=== PATIENT | female | born 1945 | race Caucasian/White ===

== ENCOUNTER 2019-07-20 13:14 | Inpatient (IN) | payer MEDICARE, OTHER ==
[~2019-07-20] VITALS: Ht 160 cm; Wt 72.6 kg
--- NOTE | 2019-07-20 13:25 | NUR ---
Pt presents to ED via WC [facility] for report they sent her here for a result of a left hip fx on an xray they completed this a.m. Pt had ate a large "roll" for breakfast for last solid and spouse had patient drinking his water in waiting room after 1300 ROB[employer] TECHNICIAN to ED room 1325. PT IS NPO NOW. Last used an Ibuprofen 200 mg at 1000. Pt's spouse reports names of her medications and assists answering some questions as pt stares at him and pauses in her answers. Spouse states she was found on floor in kitchen on Labor Day night. Pt does not not know if she slipped and fell, got dizzy, or what occured. Pt was in front of refrigerator. Pt uses Ambien nightly. Pt is known diabetic and states she uses pills but is suppose to start insulin but has not yet. Pt begins to ask why is asking what hospital she wants as she states, "I thought I would go home and it will just mend?" Dr educated patient and spouse of need for orthopedic consult for surgery to repair fx hip.
--- NOTE | 2019-07-20 13:35 | NUR ---
Pt assessed, see Trauma Flow Sheet. Pt placed in gown: Hematoma to left side head occipital area with tenderness, ecchymosis to left upper arm posterior side with mild tenderness of upper humerus, ecchymosis area to left hip at area of greater trochanter region.
[2019-07-20] MEDS ORDERED: fentaNYL INJECTION 100 MCG/2 ML AMP IVP ONE (14:00)
--- NOTE | 2019-07-20 14:03 | ED Lower Extremity ---
General Chief Complaint: Lower Extremity Stated Complaint: BROKEN LEFT HIP Source: patient, spouse History of Present Illness Date Seen by Provider: Jul 20, 2019 Time Seen by Provider: 13:18 Initial Comments 74-year-old female presenting with complaints of left hip pain after a fall Wednesday night, July 17. She takes Ambien to help her rest and she had taken her sleeping pill already about night. She does not remember exactly how she fell. She thinks that she had caught her feet on the carpet and fallen on her left side. She states that her and helped her get back to bed. She has bruising to her left side and has pain in her left hip. She had assisted in bed on Wednesday but had tried getting up and walking on Wednesday. The pain had gotten worse with trying to walk. She finally came in to be evaluated today in the clinic and they did an x-ray showing a hip fracture. She was sent from the clinic to the emergency department because of the hip fracture. She last ate at approximately 10 AM and had a sip of water in the emergency department waiting room just prior to being seen. She denies any pain with urination. She has had no fever or chills. She denies any nausea or vomiting. She does have some tenderness to her left shoulder and arm where she has bruising. Allergies and Home Medications Allergies Coded Allergies: No Known Drug Allergies (Unverified , 07/20/19) Patient Home Medication List Home Medication List Reviewed: Yes Review of Systems Constitutional: No chills, No dizziness, No fever, No weakness EENTM: No ear pain, No double vision, No eye pain, No vision loss, No mouth pain, No epistaxis, No nose congestion, No nose pain, No throat pain Respiratory: No cough, No hemoptysis, No orthopnea, No stridor, No wheezing Cardiovascular: No chest pain, No palpitations Gastrointestinal: No abdominal pain, No nausea, No vomiting Genitourinary: No dysuria, No hematuria Musculoskeletal: No back pain; joint pain (left hip and left shoulder) Skin: change in color (bruising to left arm and left hip.) Psychiatric/Neurological: Headache (mild headache where she has a hematoma to the left side of her scalp) Past Rajuagf-Dhurql-Vrbclv Hx Past Med/Social Hx: Reviewed Nursing Past Med/Soc Hx Patient Social History Recent Foreign Travel: No Contact w/Someone Who Travel: No Past Medical History High Cholesterol, Hypertension Diabetes, Non-Insulin dep Physical Exam Vital Signs Vital Signs - First Documented 07/20/19 13:25 Temp 97.3 Pulse 70 Resp 16 B/P (MAP) 133/44 (73) Pulse Ox 99 O2 Delivery Room Air Capillary Refill : Height, Weight, BMI Height: '" Weight: lbs. oz. kg; BMI Method: General Appearance: WD/WN, no apparent distress, obese HEENT: PERRL/EOMI, pharynx normal Neck: non-tender, full range of motion, supple, normal inspection Cardiovascular: normal peripheral pulses, regular rate, rhythm Respiratory: chest non-tender, lungs clear, normal breath sounds Gastrointestinal: normal bowel sounds, non tender, soft, no pulsatile mass Hips: left hip bone tenderness, left hip ecchymosis, left hip limited range of motion (due to pain), left hip pain, left hip soft tissue tenderness, left hip swelling (and bruising) Neurologic/Tendon: normal sensation, normal motor functions Neurologic/Psychiatric: alert, normal mood/affect, oriented x 3 Skin: warm/dry, ecchymosis (left upper arm, left hip, left side of the scalp) Progress/Results/Core Measures Results/Orders Lab Results Laboratory Tests Test 07/20/19 14:00 Range/Units White Blood Count 3.8 L 4.3-11.0 10^3/uL Red Blood Count 3.80 L 4.35-5.85 10^6/uL Hemoglobin 11.1 L 11.5-16.0 G/DL Hematocrit 35 35-52 % Mean Corpuscular Volume 91 80-99 FL Mean Corpuscular Hemoglobin 29 25-34 PG Mean Corpuscular Hemoglobin Concent 32 32-36 G/DL Red Cell Distribution Width 12.9 10.0-14.5 % Platelet Count 145 130-400 10^3/uL Mean Platelet Volume 9.7 7.4-10.4 FL Neutrophils (%) (Auto) 61 42-75 % Lymphocytes (%) (Auto) 31 12-44 % Monocytes (%) (Auto) 8 0-12 % Eosinophils (%) (Auto) 0 0-10 % Basophils (%) (Auto) 0 0-10 % Neutrophils # (Auto) 2.3 1.8-7.8 X 10^3 Lymphocytes # (Auto) 1.2 1.0-4.0 X 10^3 Monocytes # (Auto) 0.3 0.0-1.0 X 10^3 Eosinophils # (Auto) 0.0 0.0-0.3 10^3/uL Basophils # (Auto) 0.0 0.0-0.1 10^3/uL Prothrombin Time 13.6 12.2-14.7 SEC INR Comment 1.0 0.8-1.4 Activated Partial Thromboplast Time 30 24-35 SEC Sodium Level 132 L 135-145 MMOL/L Potassium Level 4.6 3.6-5.0 MMOL/L Chloride Level 97 L 98-107 MMOL/L Carbon Dioxide Level 19 L 21-32 MMOL/L Anion Gap 16 H 5-14 MMOL/L Blood Urea Nitrogen 22 H 7-18 MG/DL Creatinine 1.62 H 0.60-1.30 MG/DL Estimat Glomerular Filtration Rate 31 BUN/Creatinine Ratio 14 Glucose Level 537 *H 70-105 MG/DL Calcium Level 8.8 8.5-10.1 MG/DL Corrected Calcium 8.9 8.5-10.1 MG/DL Total Bilirubin 0.7 0.1-1.0 MG/DL Aspartate Amino Transf (AST/SGOT) 37 H 5-34 U/L Alanine Aminotransferase (ALT/SGPT) 32 0-55 U/L Alkaline Phosphatase 331 H 40-136 U/L Total Protein 6.5 6.4-8.2 GM/DL Albumin 3.9 3.2-4.5 GM/DL My Orders Orders - BRITTNEY LANDEROS MD Comprehensive Metabolic Panel (07/20/19 13:47) Ua Culture If Indicated (07/20/19 13:47) Ed Iv/Invasive Line Start (07/20/19 13:47) Cbc With Automated Diff (07/20/19 13:47) Protime With Inr (07/20/19 13:47) Partial Thromboplastin Time (07/20/19 13:47) Ekg Tracing (07/20/19 13:50) Fentanyl Injection (Sublimaze Injection (07/20/19 14:00) Ct Head/Cervical Spine Wo (07/20/19 13:55) Humerus 2 View Left (07/20/19 13:55) Chest 1 View Ap/Pa Only (07/20/19 14:21) Medications Given in ED Current Medications Medications Dose Ordered Sig/Taty Route Start Time Stop Time Status Last Admin Dose Admin Fentanyl Citrate 50 mcg ONCE ONCE IVP 07/20/19 14:00 07/20/19 14:01 DC 07/20/19 14:45 50 MCG Vital Signs/I&O 07/20/19 13:25 Temp 97.3 Pulse 70 Resp 16 B/P (MAP) 133/44 (73) Pulse Ox 99 O2 Delivery Room Air Progress Progress Note #1: Progress Note X-rays reviewed from [facility] clinic showing left femoral neck fracture. This shows some slight impaction. Will also check basic labs in addition to a CT of the head since she had a scalp hematoma and x-rays of the left femur is still for occult fractures. Provided these tests looked okay will proceed with admission through the [facility] provider so that she could see orthopedics for surgical evaluation and treatment of the hip fracture. Progress Note #2: Progress Note labs show she has elevated glucose and Cr. Advised Dr. Fabian of this and sliding scale insulin orders added to bridge order set. CT head, Humerus xray, CXR all look stable without acute significant abnormality and no intracranial hemorrhage or fractures. Initial ECG Impression Date: Jul 20, 2019 Initial ECG Impression Time: 14:05 Initial ECG Rhythm: Normal Sinus Initial ECG Comparisson: No Previous ECG Available Comment Sinus rhythm with a heart rate of 69 bpm. ME interval of 129 ms. QT interval 418 ms with a QT corrected interval 448 ms. She has no acute ST elevation. There is no prior tracing for comparison. Diagnostic Imaging Diagonstic Imaging: CT Plain Films/CT/US/NM/MRI: c-spine, head Comments NAME: [facility] REC#: [id number] PT STATUS: REG ER : 1945 PHYSICIAN: BRITTNEY LANDEROS MD ADMIT DATE: 07/20/19/ER FS Draft Date of Exam:07/20/19 CT HEAD/CERVICAL SPINE WO PROCEDURE: CT head and CT cervical spine without contrast. TECHNIQUE: Multiple contiguous axial images were obtained through the brain and cervical spine without the use of intravenous contrast. Sagittal and coronal reformations through the cervical spine were then performed. Auto Exposure Controls were utilized during the CT exam to meet ALARA standards for radiation dose reduction. INDICATION: Fall. Head injury. COMPARISON: None. FINDINGS: CT HEAD: No intracranial hemorrhage, mass effect, hydrocephalus or extra-axial fluid collections. No CT evidence for territorial infarction. Moderate generalized cerebral and cerebellar parenchymal volume loss. Osseous structures are intact. The visualized paranasal sinuses and mastoids are clear. CT CERVICAL SPINE: Reversal of the normal cervical lordosis centered at C6. Alignment is otherwise unremarkable. Mild degenerative endplate changes are greatest at C6-C7. Vertebral body heights preserved. No fractures. No evidence of high-grade spinal canal narrowing on soft tissue windows. The visualized paravertebral soft tissues are unremarkable. Lung apices are clear. IMPRESSION: No acute intracranial or cervical spine CT findings. Dictated on workstation # [id number] Dict: 07/20/19 1432 Trans: 07/20/191435 YFN Interpreted by: DONLAD GARCIA MD Electronically signed by: Diagonstic Imaging: Xray Plain Films/CT/US/NM/MRI: chest Comments NAME: [facility] REC#: [id number] PT STATUS: REG ER : 1945 PHYSICIAN: BRITTNEY LANDEROS MD ADMIT DATE: 07/20/19/ER FS Draft Date of Exam:07/20/19 CHEST 1 VIEW AP/PA ONLY INDICATION: Fall. Hip fracture. COMPARISON: None. FINDINGS: Single frontal view of the chest demonstrates normal heart size and pulmonary vascularity. The lungs are well aerated and clear. No large pleural effusion or pneumothorax is seen. The visualized osseous structures show no acute abnormalities. IMPRESSION: 1. No acute cardiopulmonary process. Dictated on workstation # [id number] Dict: 07/20/19 1433 Trans: 07/20/19 1438 [facility] Interpreted by: BRUNILDA STEWART MD Electronically signed by: Diagonstic Imaging: Xray Plain Films/CT/US/NM/MRI: other (left humerus) Comments NAME: [facility] REC#: [id number] PT STATUS: REG ER : 1945 PHYSICIAN: BRITTNEY LANDEROS MD ADMIT DATE: 07/20/19/ER FS Draft Date of Exam:07/20/19 HUMERUS 2 VIEW LEFT INDICATION: Fall. COMPARISON: None. FINDINGS: Two views of the left humerus were obtained and show no fractures, dislocations, or other acute bony abnormalities. Joint spaces are well maintained throughout. The soft tissues appear unremarkable. No radiopaque foreign bodies are identified. IMPRESSION: Unremarkable radiographic exam of the left humerus. Dictated on workstation # [id number] Dict: 07/20/19 1438 Trans: 07/20/19 1442 [facility] [id number] Interpreted by: BRUNILDA STEWART MD Electronically signed by: Diagonstic Imaging: Xray Plain Films/CT/US/NM/MRI: hip Comments [facility] [place] [place] NAME: [facility] REC#: [id number] PT STATUS: REG CLI : 1945 PHYSICIAN: JEMMA LUO APRN ADMIT DATE: 07/20/19/RAD FS Draft Date of Exam:07/20/19 HIP 2-3 VIEW LEFT CLINICAL INDICATION: Patient is status post fall two days ago. Patient has left hip pain. EXAM: X-ray of the left hip, AP and frog-leg views. COMPARISON: None. FINDINGS: There is an impacted and displaced fracture of the proximal left femoral neck/subcapital region. There is no other fracture or dislocation seen. Remainder of the pelvis is unremarkable. Visualized left sacroiliac joints are unremarkable. Phleboliths are seen in the pelvis. IMPRESSION: There is a mildly impacted fracture of the left proximal femoral neck/subcapital region. Results of this report were discussed with Jemma Luo APRN via the telephone on 07/20/2019 at 1225 hrs. CRITICAL FINDINGS. Dictated on workstation # [id number] Dict: 07/20/19 1216 Trans: 07/20/19 1235 [facility] [id number] Interpreted by: SHARITA ETIENNE MD Electronically signed by: Departure Communication (Admissions) Time/Spoke to Admitting Phy: 14:34 D/w Dr. Fabian about admit of patient for hip fracture. She does have diabetes, hypertension and high cholesterol. CT head and humerus as well as labs are pendi ng. Will contact Dr. Bell for consult. Time/Spoke to Consulting Phy: 14:[address] Bell of the consult about the pt with femoral neck fracture of the subcapital region with mild impaction Impression Primary Impression: Fracture of hip, left, closed Qualified Codes: S72.002A - Fracture of unspecified part of neck of left femur, initial encounter for closed fracture Additional Impression: Hyperglycemia due to type 2 diabetes mellitus Qualified Codes: E11.65 - Type 2 diabetes mellitus with hyperglycemia Disposition: ADMITTED INPATIENT Condition: Stable Admissions Decision to Admit Reason: Admit from ER (General) Decision to Admit/Date: Jul 20, 2019 Time/Decision to Admit Time: 14:34 Departure-Patient Inst. Referrals: [facility] (PCP) Primary Care Physician VARINDER AN APRN (Family) Primary Care Physician BRITTNEY LANDEROS MD Jul 20, 2019 14:03
[2019-07-20 14:32] LABS: WHITE BLOOD COUNT 3.8 10^3/uL (4.3-11.0)
[2019-07-20 14:33] LABS: BASOPHILS % (AUTO) 0 % (0-10); EOSINOPHILS % (AUTO) 0 % (0-10); HEMATOCRIT 35 % (35-52); HEMOGLOBIN 11.1 G/DL (11.5-16.0); LYMPHOCYTES # (AUTO) 1.2 X 10^3 (1.0-4.0); LYMPHOCYTES % (AUTO) 31 % (12-44); MEAN CORPUSCULAR HEMOGLOBIN 29 PG (25-34); MEAN CORPUSCULAR HGB CONC 32 G/DL (32-36); MEAN CORPUSCULAR VOLUME 91 FL (80-99); MEAN PLATELET VOLUME 9.7 FL (7.4-10.4); MONOCYTES # (AUTO) 0.3 X 10^3 (0.0-1.0); MONOCYTES % (AUTO) 8 % (0-12); NEUTROPHILS # (AUTO) 2.3 X 10^3 (1.8-7.8); NEUTROPHILS % (AUTO) 61 % (42-75); PLATELET COUNT 145 10^3/uL (130-400); RED CELL DISTRIBUTION WIDTH 12.9 % (10.0-14.5)
[2019-07-20 14:35] LABS: ALBUMIN 3.9 GM/DL (3.2-4.5); BILIRUBIN,TOTAL 0.7 MG/DL (0.1-1.0); CALCIUM 8.8 MG/DL (8.5-10.1); CREATININE SERUM 1.62 MG/DL (0.60-1.30); POTASSIUM 4.6 MMOL/L (3.6-5.0); TOTAL PROTEIN 6.5 GM/DL (6.4-8.2)
--- NOTE | 2019-07-20 14:36 | Diagnostic Imaging Report ---
PROCEDURE: CT head and CT cervical spine without contrast. TECHNIQUE: Multiple contiguous axial images were obtained through the brain and cervical spine without the use of intravenous contrast. Sagittal and coronal reformations through the cervical spine were then performed. Auto Exposure Controls were utilized during the CT exam to meet ALARA standards for radiation dose reduction. INDICATION: Fall. Head injury. COMPARISON: None. FINDINGS: CT HEAD: No intracranial hemorrhage, mass effect, hydrocephalus or extra-axial fluid collections. No CT evidence for territorial infarction. Moderate generalized cerebral and cerebellar parenchymal volume loss. Osseous structures are intact. The visualized paranasal sinuses and mastoids are clear. CT CERVICAL SPINE: Reversal of the normal cervical lordosis centered at C6. Alignment is otherwise unremarkable. Mild degenerative endplate changes are greatest at C6-C7. Vertebral body heights preserved. No fractures. No evidence of high-grade spinal canal narrowing on soft tissue windows. The visualized paravertebral soft tissues are unremarkable. Lung apices are clear. IMPRESSION: No acute intracranial or cervical spine CT findings. Dictated by: Dictated on workstation # [id number]
--- NOTE | 2019-07-20 14:36 | NUR ---
Lab callled to report critical high glucose 537, notified Dr Nix. Spoke with patient and reports she has not had her meds today. Pt states she ate a large "roll" for breakfast and then was out her to clinic. Pt was elevated glucose on last visit with Niya BARRETO and was instructed on insulin needs and dosing and administration. Pt now states she really has not began taking them insulin shots yet but knows her glucose was as high as 489. Pt seems not acknowledgeable or understanding of the significance of the requirement of glucose management and the complications that may occur i.e. DKA, diabetic coma, effects on kidney.
--- NOTE | 2019-07-20 14:39 | Diagnostic Imaging Report ---
INDICATION: Fall. Hip fracture. COMPARISON: None. FINDINGS: Single frontal view of the chest demonstrates normal heart size and pulmonary vascularity. The lungs are well aerated and clear. No large pleural effusion or pneumothorax is seen. The visualized osseous structures show no acute abnormalities. IMPRESSION: 1. No acute cardiopulmonary process. Dictated by: Dictated on workstation # [id number]
[2019-07-20 14:40] LABS: PROTHROMBIN TIME PATIENT 13.6 SEC (12.2-14.7)
--- NOTE | 2019-07-20 14:42 | Diagnostic Imaging Report ---
INDICATION: Fall. COMPARISON: None. FINDINGS: Two views of the left humerus were obtained and show no fractures, dislocations, or other acute bony abnormalities. Joint spaces are well maintained throughout. The soft tissues appear unremarkable. No radiopaque foreign bodies are identified. IMPRESSION: Unremarkable radiographic exam of the left humerus. Dictated by: Dictated on workstation # [id number]
[2019-07-20] MEDS ORDERED: ONDANSETRON 4 MG/2 ML (SDV) Z0FRAN ONE (15:07)
[2019-07-20] MEDS ORDERED: ONDANSETRON 4 MG/2 ML (SDV) Z0FRAN IVP STA (15:13)
[2019-07-20] MEDS ORDERED: inSUlin (REGULAR) HUMAN 1 UNIT/0.01 ML (CHARGE PER UNIT) SC ONE (15:15)
[2019-07-20] MEDS ORDERED: NS IV 1000 ML 1,000 ML IV SCH (15:15)
--- NOTE | 2019-07-20 15:15 | NUR ---
Catheter inserted per Sarika GRADY prior to transfer.
--- NOTE | 2019-07-20 15:23 | NUR ---
Zofran 4 mg SIVP given for nausea. Pt given Humulin R 14 units subq by Tian GRADY as per Dr order for glucose 537.
[2019-07-20 15:35] LABS: AMORPHOUS SEDIMENT,UR FEW AMOR URATES /LPF; BACTERIA,URINE TRACE /HPF; BILIRUBIN,URINE NEGATIVE (NEGATIVE); CLARITY,URINE CLEAR; COLOR,URINE YELLOW; GLUCOSE, URINE (UA) 3+ (NEGATIVE); KETONES,URINE NEGATIVE (NEGATIVE); LEUKOCYTE ESTERASE ,URINE NEGATIVE (NEGATIVE); NITRITE,URINE NEGATIVE (NEGATIVE); PH,URINE 5.5 (5-9); PROTEIN,URINE 2+ (NEGATIVE); UROBILINOGEN,URINE 0.2 MG/DL (NORMAL); WBC,URINE RARE /HPF
--- NOTE | 2019-07-20 15:35 | NUR ---
Patient departed via [facility] for [place] [facility] Rm 406. Pt is stable. No further nausea, pain rated "4"/10.
[2019-07-20 15:36] LABS: GRANULAR CASTS,URINE RARE /LPF
--- NOTE | 2019-07-20 16:25 | NUR ---
PT ARRIVED TO FLOOR VIA [facility]. ADMITTED TO ROOM 406 FOR LEFT HIP FX. A/O X4. PT HAS LARGE BRUISE ON LEFT ARM AND A LARGE BRUISE ON LEFT HIP. REPORTS PAIN 5/10 BUT DENIES NEEDING ANY PAIN MEDICATION AT THIS TIME. PT HAD FENTANYL LAST AT 1445 PER ED NURSE. PT ORIENTED TO ROOM. CALL LIGHT WITHIN REACH. PT BLOOD SUGAR 401. DR CASH NOTIFIED AND GAVE ORDERS TO GIVE 14 UNITS AT THIS TIME.
[2019-07-20 16:35] VITALS: BP 131/76
[2019-07-20] MEDS ORDERED: CATHETER FLUSH 10 ML SYR IV PRN (17:00)
[2019-07-20] MEDS ORDERED: fentaNYL INJECTION 100 MCG/2 ML AMP IV PRN (17:00)
[2019-07-20] MEDS ORDERED: inSUlin ASPART (NovoLOG) 1 UNIT/0.01 ML (CHARGE PER UNIT) SC NR (17:15)
[2019-07-20] MEDS: NS IV 1000 ML 1,000 ML IV SCH (17:15)
--- NOTE | 2019-07-20 17:34 | Consultation - Ortho ---
Consult - Ortho Subjective Date of Exam 07/20/19 Chief Complaint Mrs. Harris is a 74-year-old white female who fell Conor evening. She had just taken her Ambien for sleep at approximately 10 or 1030 and was standing by her refrigerator and the next thing she knew she was on the floor. She didn't really have much pain if any. She tried to ambulate the next day or so and did increasing pain was seen today and x-rays were obtained which showed an impacted subcapital fracture left hip. She was transferred [facility] for further evaluation and treatment from [place]. Eyes any history of previous left hip problems. No previous orthopedic surgeries. She ambulates without a cane or a walker prior to her fall. He only other injury she has some discomfort in the left upper arm where she has significant bruising. She states she is on no blood thinners. She recently was started on insulin for diabetes. Her previous surgeries include a hysterectomy cataract surgery and cholecystectomy He has no known allergies HPI/Events since last exam Please see chief complaint Medical, Surgical History Please see above for surgeries Medical history is positive for hypertension and diabetes Social History Reviewed and no additions or changes Family History Reviewed and no additions or changes Review of Systems Reviewed and no additions or changes Allergies: Coded Allergies: No Known Drug Allergies (Unverified , 07/20/19) Objective Exam Constitutional: [] HEENT: [] Neck: [No pain with palpation or range of motion] Cardiovascular: [] Respiratory: [] Gastrointestinal: [] Genitourinary: [] Skin: [] Bruising left hip and left upper arm Back/Spine: [No pain with palpation of the thoracolumbar spine.] Extremities: [] Upper extremitiesfull range of motion without pain. No crepitation or deformity. Bruising left shoulder to left elbow. Normal sensation with good cap refill. Good radial pulse. Good strength in both upper extremities. Normal sensation in both upper extremities Lower extremity she has bruising left hip. Pain with palpation and motion left hip. No pain right hip with good range of motion. No pain in either knee with palpation or range of motion. No calf tenderness and negative Homans. No pain either ankle. No swelling. No bruising. No instability. No pain in either foot. Normal sensation with good capillary refill and equal pulses both lower extremities Neurologic: [Grossly intact] Psychiatric: [] Hematologic/lymphatic/immunologic: [] Vital Signs Vital Signs Date Time Temp Pulse Resp B/P (MAP) Pulse Ox O2 Delivery O2 Flow Rate FiO2 07/20/19 16:35 97.2 66 18 131/76 99 Room Air 07/20/19 15:31 97.8 75 16 150/46 (80) 99 07/20/19 13:25 97.3 70 16 133/44 (73) 99 Room Air Lab Results Laboratory Tests 07/20/19 14:00: White Blood Count 3.8L, Red Blood Count 3.80L, Hemoglobin 11.1L, Hematocrit 35, Mean Corpuscular Volume 91, Mean Corpuscular Hemoglobin 29, Mean Corpuscular Hemoglobin Concent 32, Red Cell Distribution Width 12.9, Platelet Count 145, Mean Platelet Volume 9.7, Neutrophils (%) (Auto) 61, Lymphocytes (%) (Auto) 31, Monocytes (%) (Auto) 8, Eosinophils (%) (Auto) 0, Basophils (%) (Auto) 0, Neutrophils # (Auto) 2.3, Lymphocytes # (Auto) 1.2, Monocytes # (Auto) 0.3, Eosinophils # (Auto) 0.0, Basophils # (Auto) 0.0, Prothrombin Time 13.6, INR Comment 1.0, Activated Partial Thromboplast Time 30, Sodium Level 132L, Potassium Level 4.6, Chloride Level 97L, Carbon Dioxide Level 19L, Anion Gap 16H , Blood Urea Nitrogen 22H, Creatinine 1.62H, Estimat Glomerular Filtration Rate 31, BUN/Creatinine Ratio 14, Glucose Level 537*H, Calcium Level 8.8, Corrected Calcium 8.9, Total Bilirubin 0.7, Aspartate Amino Transf (AST/SGOT) 37H, Alanine Aminotransferase (ALT/SGPT) 32, Alkaline Phosphatase 331H, Total Protein 6.5, Albumin 3.9 07/20/19 15:25: Urine Color YELLOW, Urine Clarity CLEAR, Urine pH 5.5, Urine Specific Ramer 1.015L, Urine Protein 2+H, Urine Glucose (UA) 3+H, Urine Ketones NEGATIVE, Urine Nitrite NEGATIVE, Urine Bilirubin NEGATIVE, Urine Urobilinogen 0.2, Urine Leukocyte Esterase NEGATIVE, Urine RBC (Auto) 1+H, Urine RBC NONE, Urine WBC RARE, Urine Squamous Epithelial Cells NONE, Urine Crystals PRESENTH, Urine Amorphous Sediment FEW ANU URATESH, Urine Bacteria TRACE, Urine Casts PRESENT, Urine Granular Casts RARE, Urine Mucus NONE, Urine Culture Indicated NO 07/20/19 16:29: Glucometer 401*H Assessment and Plan Assessment Impacted subcapital fracture left hip after fall on Wednesday evening with mild displacement Problem List Orthopedic problem list includes mildly displaced impacted subcapital fracture left hip Plan Treatment options were discussed with the patient and her . I talked to him at length about surgical and nonsurgical treatment. If treated nonsurgically this would require several weeks of bed rest and no weightbearing and even with that the fracture could displace further, not heal or progress to avascular necrosis Surgical options include in situ screw fixation after attempted closed reduction or cemented bipolar hemiarthroplasty left hip. I talked her about reduction and screw fixation and again the fact that the fracture may not heal, it could displace or could progress to avascular necrosis. She would not be able to weight-bear for 3-4 weeks and then progressive weightbearing. Again cemented hemiarthroplasty was discussed. She couldn't immediately weight-bear. There is some increased risk, blood loss, infection and DVT risks were discussed. After lengthy discussion she wants to proceed with a cemented bipolar hemiarthroplasty left hip. She has had no previous hip problems so would not recommend a total hip arthroplasty at this time. Shear have no further questions or concerns. She is scheduled for surgery tomorrow at approximately 1030. She'll be placed in 5 pounds of [place] traction this evening and continue with bed rest Final Diagonsis Mildly displaced impacted subcapital fracture left hip, contusion left upper arm Level of the visit: Level 3 MAGALY LEON MD Jul 20, 2019 17:34
[2019-07-20 19:44] VITALS: BP 111/67
[2019-07-20] MEDS: inSUlin ASPART (NovoLOG) 1 UNIT/0.01 ML (CHARGE PER UNIT) SC SCH (20:57)
[2019-07-20 23:47] VITALS: BP 116/68
--- NOTE | 2019-07-20 23:50 | NUR ---
PT COMPLAINS OF NOT BEING ABLE OT SLEEP, AND THAT SHE USUALLY TAKES 10MG AMBIEN TO HELP WITH INSOMNIA. DR. CASH CALLED AT 0003, DR ORDERED 5MG AMBIEN PO QHS PRN
[2019-07-21] VITALS (9 sets, daily range): BP systolic 96–128; BP diastolic 45–70
[2019-07-21] MEDS: ZOLPIDEM 5 MG (AMBIEN) TAB PO PRN ×2 (01:01→21:22)
[2019-07-21] MEDS: NS IV 1000 ML 1,000 ML IV SCH ×3 (01:46→18:38)
[2019-07-21] MEDS ORDERED: LACTATED RINGERS 1,000 ML IV PRN (05:37)
[2019-07-21] MEDS: inSUlin ASPART (NovoLOG) 1 UNIT/0.01 ML (CHARGE PER UNIT) SC SCH ×4 (06:35→21:23)
[2019-07-21 06:57] LABS: MEAN PLATELET VOLUME 9.7 FL (7.4-10.4); RED CELL DISTRIBUTION WIDTH 13.3 % (10.0-14.5); WHITE BLOOD COUNT 3.3 10^3/uL (4.3-11.0)
[2019-07-21 07:34] LABS: ALBUMIN 3.5 GM/DL (3.2-4.5); BILIRUBIN,TOTAL 0.6 MG/DL (0.1-1.0); CALCIUM 8.4 MG/DL (8.5-10.1); CREATININE SERUM 1.6 MG/DL (0.60-1.30); POTASSIUM 4.2 MMOL/L (3.6-5.0)
--- NOTE | 2019-07-21 08:46 | History & Physical ---
WILILAM CRAIG,MED STUDENT 07/21/19 0846: HPI History of Present Illness: 74 year old female presents with a history of fall 07/17 around 10pm after taking her Ambien which she states she takes every evening. She was in the kitchen near the refrigerator and next thing she knew she was on the floor. She is unsure how she fell but states she landed on her left side, she is unsure if she hit her head but does state she has noticed a bump on her head since the fall. She was able to get up and make it to the bedroom to have her help her to bed. She denies pain at the time of the fall. The next morning she had very little pain but the left hip and arm pain began to worsen with her increasing activity. The pain became so bad she was seen in the ED 07/20. Source: patient Exam Limitations: no limitations Date seen by provider: Jul 21, 2019 Time Seen by Provider: 02:45 Attending Physician Janae Fabian MD [facility] [place] Consult Date of Admission Jul 20, 2019 at 14:34 Home Medications Home Medications Reviewed patient Home Medication Reconciliation performed by pharmacy medication reconciliations technician automatic and/or nursing. Patients Allergies have been reviewed. Allergies Coded Allergies: No Known Drug Allergies (Unverified , 07/20/19) [id number] Hx Patient Social History Marrital Status: Alcohol Use: Denies Use Recreational Drug Use: No Smoking Status: Never a Smoker 2nd Hand Smoke Exposure: No Recent Foreign Travel: No Contact w/other who traveled: No Recent Hopitalizations: No Recent Infectious Disease Expo: No Past Medical History MedHx: DMII HTN high cholesterol SurgHx: hysterectomy cholecystectomy bilateral cataracts Family Medical History Significant Family History: Heart Disease (4 brothers and father), Cancer (brother-colon cancer), Diabetes (daughter) Family History: Diabetes mellitus 19 MOTHER FH: heart disease 19 MOTHER G8 BROTHER G8 BROTHER Myocardial infarction 19 FATHER G8 BROTHER G8 BROTHER Neoplasm Review of Systems ([facility]) Constitutional: No chills, No fever, No weakness EENTM: No blurred vision, No double vision Respiratory: No cough, No short of breath Cardiovascular: No chest pain Gastrointestinal: No constipation, No diarrhea, No nausea, No vomiting Musculoskeletal: other (left leg and left arm pain) Skin: No rash Psychiatric/Neurological: Denies Headache, Denies Numbness, Denies Paresthesia, Denies Weakness Reviewed Test Results Reviewed Test Results Lab Laboratory Tests 07/20/19 14:00: White Blood Count 3.8L, Red Blood Count 3.80L, Hemoglobin 11.1L, Hematocrit 35, Mean Corpuscular Volume 91, Mean Corpuscular Hemoglobin 29, Mean Corpuscular Hemoglobin Concent 32, Red Cell Distribution Width 12.9, Platelet Count 145, Mean Platelet Volume 9.7, Neutrophils (%) (Auto) 61, Lymphocytes (%) (Auto) 31, Monocytes (%) (Auto) 8, Eosinophils (%) (Auto) 0, Basophils (%) (Auto) 0, Neutrophils # (Auto) 2.3, Lymphocytes # (Auto) 1.2, Monocytes # (Auto) 0.3, Eosinophils # (Auto) 0.0, Basophils # (Auto) 0.0, Prothrombin Time 13.6, INR Comment 1.0, Activated Partial Thromboplast Time 30, Sodium Level 132L, Potassium Level 4.6, Chloride Level 97L, Carbon Dioxide Level 19L, Anion Gap 16H, Blood Urea Nitrogen 22H, Creatinine 1.62H, Estimat Glomerular Filtration Rate 31, BUN/Creatinine Ratio 14, Glucose Level 537*H, Calcium Level 8.8, Corrected Calcium 8.9, Total Bilirubin 0.7, Aspartate Amino Transf (AST/SGOT) 37H, Alanine Aminotransferase (ALT/SGPT) 32, Alkaline Phosphatase 331H, Total Protein 6.5, Albumin 3.9 07/20/19 15:25: Urine Color YELLOW, Urine Clarity CLEAR, Urine pH 5.5, Urine Specific Kimper 1.015L, Urine Protein 2+H, Urine Glucose (UA) 3+H, Urine Ketones NEGATIVE, Urine Nitrite NEGATIVE, Urine Bilirubin NEGATIVE, Urine Urobilinogen 0.2, Urine Leuko cyte Esterase NEGATIVE, Urine RBC (Auto) 1+H, Urine RBC NONE, Urine WBC RARE, Urine Squamous Epithelial Cells NONE, Urine Crystals PRESENTH, Urine Amorphous Sediment FEW ANU URATESH, Urine Bacteria TRACE, Urine Casts PRESENT, Urine Granular Casts RARE, Urine Mucus NONE, Urine Culture Indicated NO 07/20/19 16:29: Glucometer 401*H 07/20/19 20:00: Glucometer 216H 07/21/19 05:45: White Blood Count 3.3L, Red Blood Count 3.68L, Hemoglobin 11.0L, Hematocrit 33L, Mean Corpuscular Volume 90, Mean Corpuscular Hemoglobin 30, Mean Corpuscular Hemoglobin Concent 33, Red Cell Distribution Width 13.3, Platelet Count 149, Mean Platelet Volume 9.7, Sodium Level 141, Potassium Level 4.2, Chloride Level 114#H, Carbon Dioxide Level 20L, Anion Gap 7, Blood Urea Nitrogen 16, Creatinine 1.60H, Estimat Glomerular Filtration Rate 32, BUN/Creatinine Ratio 10, Glucose Level 157H, Calcium Level 8.4L, Corrected Calcium 8.8, Total Bilirubin 0.6, Aspartate Amino Transf (AST/SGOT) 39H, Alanine Aminotransferase (ALT/SGPT) 34, Alkaline Phosphatase 322H, Total Protein 6.0L, Albumin 3.5 07/21/19 06:03: Glucometer 171H 07/21/19 13:14: Glucometer 242H Radiology Humerus X-Ray: Unremarkable radiographic exam of the left humerus. Head/Cervical Spine CT: No acute intracranial or cervical spine CT findings. CXR: No acute cardiopulmonary process. Hip X-Ray: There is a mildly impacted fracture of the left proximal femoral neck/subcapital region. Physical Exam-([facility]) Physical Exam Vital Signs VS - Last 72 Hours, by Label 07/20/19 07/20/19 07/20/19 07/20/19 13:25 15:31 16:30 16:35 Temp 97.3 97.8 97.2 Pulse 70 75 66 Resp 16 16 18 B/P (MAP) 133/44 (73) 150/46 (80) 131/76 Pulse Ox 99 99 99 99 O2 Delivery Room Air Room Air Room Air 07/20/19 07/20/19 07/20/19 07/21/19 19:44 20:55 23:47 04:06 Temp 97.9 97.6 97.1 Pulse 70 72 75 Resp 18 18 18 B/P (MAP) 111/67 (82) 116/68 (84) 128/56 (80) Pulse Ox 98 96 97 O2 Delivery Room Air Room Air Room Air Room Air 07/21/19 07/21/19 07/21/19 07/21/19 08:00 12:06 12:06 12:20 Temp 98.0 97.0 Pulse 68 Resp 18 12 B/P (MAP) 119/70 (86) Pulse Ox 99 99 O2 Delivery Room Air Room Air Room Air Room Air 07/21/19 07/21/19 07/21/19 07/21/19 12:20 12:35 12:50 13:00 Temp 96.0 Pulse 57 Resp 14 16 B/P (MAP) 115/67 (83) Pulse Ox 99 99 O2 Delivery Room Air Room Air Room Air Room Air 07/21/19 07/21/19 13:00 13:00 Temp 97.2 Resp 16 Pulse Ox 98 O2 Delivery Room Air Room Air Capillary Refill : Less Than 3 SecondsLess Than 3 Seconds General Appearance: WD/WN, no apparent distress Respiratory: chest non-tender, lungs clear, normal breath sounds, no respiratory distress, no accessory muscle use Cardiovascular: regular rate, rhythm, no murmur Gastrointestinal: normal bowel sounds, non tender, soft, no organomegaly; No guarding, No rebound Neurologic/Psychiatric: alert, normal mood/affect, oriented x 3 Assessment/Plan Assessment/Plan Assessment & Plan 74 year old female with history of a fall and left hip pain and hyperglycemia. Ortho consult done with plan to do cement bipolar hemiarthroscopy at 10:30am 07/21. Patient is comfortable at this time. Glucose trending down, continue to monitor. Clinical Quality Measures DVT/VTE Risk/Contraindication: Risk Factor Score Per Nursin RFS Level Per Nursing on Admit: 4+=Very High JANAE FABIAN MD 07/21/19 2006: Home Medications Allergies Coded Allergies: No Known Drug Allergies (Unverified , 07/20/19) [id number] Hx Family Medical History Family History: Diabetes mellitus 19 MOTHER FH: heart disease 19 MOTHER G8 BROTHER G8 BROTHER Myocardial infarction 19 FATHER G8 BROTHER G8 BROTHER Neoplasm Physical Exam-([facility]) Physical Exam General Appearance: WD/WN, no apparent distress Respiratory: lungs clear, normal breath sounds Cardiovascular: regular rate, rhythm, no murmur Gastrointestinal: normal bowel sounds, non tender, soft Neurologic/Psychiatric: alert, normal mood/affect Skin: normal color, warm/dry Assessment/Plan Assessment/Plan Admission Status: Inpatient Order (span 2 midnights) Reason for Inpatient Admission: Hip fracture and repair with underlying comorbidities, will require 2 nights or more for recovery. (1) Fracture of hip, left, closed Status: Acute Assessment & Plan: Repair per Ortho. Qualifiers: Qualified Codes: S72.002A - Fracture of unspecified part of neck of left femur, initial encounter for closed fracture (2) Hypertension Status: Chronic Assessment & Plan: Resume home meds. Qualifiers: Qualified Codes: I10 - Essential (primary) hypertension (3) Hyperlipemia Status: Chronic Assessment & Plan: Resume home statin. (4) Diabetes Status: Chronic Assessment & Plan: Resume home metformin, diabetic diet. Sliding scale insulin, may need insulin on d/c. Qualifiers: Qualified Codes: E11.65 - Type 2 diabetes mellitus with hyperglycemia (5) Leukopenia Status: Acute Assessment & Plan: Hold home olanzepine, monitor. (6) Acute renal insufficiency Status: Acute Assessment & Plan: Unknown baseline, stable today. Hydration and monitoring. (7) Hyponatremia Status: Acute (8) Elevated AST (SGOT) Status: Acute Assessment & Plan: Minimally elevated, Unclear etiology, monitor. (9) DVT prophylaxis Status: Acute Assessment & Plan: Enoxaparin Supervisory-Addendum Brief Verification & Attestation Participated in pt care: history, MDM, physical Personally performed: exam, history, MDM Care discussed with: Medical Student Procedures: n/a Verification and Attestation of Medical Student E/M Service A medical student performed and documented this service in my presence. I reviewed and verified all information documented by the medical student and made modifications to such information, when appropriate. I personally performed the physical exam and medical decision making. See problem list for my assessment and plan. Janae Fabian, Jul 21, 2019,20:06 WILLIAM CRAIG,MED STUDENT Jul 21, 2019 08:46 JANAE FABIAN MD Jul 21, 2019 20:06
--- NOTE | 2019-07-21 09:05 | Progress Note-Pre Operative ---
Pre-Operative Progress Note H&P Reviewed The H&P was reviewed, patient examined and no changes noted. The patient has no further questions about the procedure and would like to proceed. The left leg was marked. Date Seen by Provider: Jul 21, 2019 Time Seen by Provider: 08:50 Date H&P Reviewed: Jul 21, 2019 Time H&P Reviewed: 09:04 Pre-Operative Diagnosis: mildly displaced impacted subcapital fracture left hip. MAGALY LEON MD Jul 21, 2019 09:05
[2019-07-21] MEDS ORDERED: NEO/POLY/BAC (NEOSPORIN) OINT 15 GM TUBE ONE (09:16)
[2019-07-21] MEDS ORDERED: fentaNYL INJECTION 100 MCG/2 ML AMP ONE (09:20)
[2019-07-21] MEDS ORDERED: BUPIVACAINE 0.5% 30 ML (SENSORCAINE) VIAL ONE (09:29)
[2019-07-21] MEDS ORDERED: ceFAZolin 2 GM/50 ML NS 50 ML IV NR (09:30)
[2019-07-21] MEDS ORDERED: PROPOFOL INJECTION 50 ML IV ONE (09:42)
[2019-07-21] MEDS ORDERED: MIDAZOLAM 2 MG/2 ML (VERSED) VIAL ONE (09:42)
[2019-07-21] MEDS ORDERED: ROPIVACAINE 5MG/ML 30ML VIAL ONE (09:46)
[2019-07-21] MEDS ORDERED: ONDANSETRON 4 MG/2 ML (SDV) Z0FRAN ONE (09:50)
[2019-07-21] MEDS ORDERED: ASPI-983 PO (09:58)
[2019-07-21] MEDS ORDERED: CBD CAPSULE PO (09:58)
[2019-07-21] MEDS ORDERED: ZOLP10TA5 PO (09:58)
[2019-07-21] MEDS ORDERED: LISI2.5T PO (09:58)
[2019-07-21] MEDS ORDERED: LACT1CAP8 PO (09:58)
[2019-07-21] MEDS ORDERED: NF-SYM625 PO (10:01)
[2019-07-21] MEDS ORDERED: ROSU20TA2 PO (10:01)
[2019-07-21] MEDS ORDERED: DULA1.5P2 SQ (10:01)
[2019-07-21] MEDS ORDERED: METF-397 PO (10:01)
[2019-07-21] MEDS ORDERED: CYAN1TAB26 PO (10:15)
--- NOTE | 2019-07-21 10:15 | NUR ---
PATIENT LISTED TO ME HER MEDICATIONS. I CALLED [facility] AND [facility] IN [place] TO VERIFY DOSES AND FILL DATES. 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 [facility] FILLED: 06-22-19 LISINOPRIL 2.5MG DAILY #90 (WAS DECREASED FROM 5MG LAST FILLED IN FEBRUARY) 06-05-19 CRESTOR 20MG HS #90 05-29-19 METFORMIN 500MG 2 BID #360 (ONLY TAKES 2 TABS DAILY IN THE MORNING) 05-23-19 TRULICITY 1.5MG WEEKLY #3 (TAKES ON FRIDAYS) 05-03-19 SYMBYAX 6-25MG DAILY #90 (TAKES IN THE EVENING) SHE STATES SHE TAKES A CBD CAPSULE OTC DAILY AND EVERY EVENING SHE TAKES AN OTC ACIDOPHILOUS AND ASPIRIN 81MG. THERE WAS ANOTHER MEDICATION SHE STATED SHE TAKES AT BEDTIME BUT SHE COULD NOT REMEMBER THE NAME OF IT. THERE WERE NOT ADDITIONAL PRESCRIPTIONS FILLED THAT SHE DID NOT LIST. I CALLED AND HAD A LIST FAXED OVER FROM DR. AGUILLON'S OFFICE AND ADDITIONALLY THEY HAD VITAMIN B12 WITH FOLATE. I ADDED IT TO THE MED REC AT THIS TIME. WHEN I WENT BACK TO VERIFY THE B12 AND LET THE PATIENT KNOW ABOUT THE PA REQUIRED ON THE LEVEMIR SHE HAD ALREADY BEEN TAKEN DOWNSTAIRS AND WAS NOT IN THE ROOM.
[2019-07-21] MEDS ORDERED: ceFAZolin INJECTION 2,000 MG ONE (10:50)
[2019-07-21] MEDS ORDERED: fentaNYL INJECTION 100 MCG/2 ML AMP IVP PRN (12:30)
[2019-07-21] MEDS ORDERED: HYDROcodone/APAP 5 MG/325 MG (LORTAB) TAB PO PRN (12:30)
--- NOTE | 2019-07-21 12:38 | Operative Report - Ortho ---
Operative Report Surgeon (s)/Wet Process Technician (s) Surgeon MAGALY LEON MD Wet Process Technician n/a Pre-Operative Diagnosis mildly displaced impacted subcapital fracture left hip. Post-Operative Diagnosis same Operative Report Date of Procedure: Jul 21, 2019 Name of Procedure Performed: Cemented bipolar hemiarthroplasty left hip. Number 3 cemented femoral stem, +5 neck, 45 mm x 28 mm bipolar head Description & Findings The patient was brought to the preoperative area. She was then taken to the operating room and after spinal anesthesia in her hospital bed she was placed on the OR table in the supine position. She was then placed in the lateral decubitus position with left side up on the pegboard. All pegs were well padded. Axillary roll was placed between the table in the right axilla. The left hip and leg were then prepped and draped in the usual sterile manner. She was given 2 g Ancef preoperatively. A curved incision was made over the left hip. This was centered over the proximal femur and then extended superiorly and slightly posteriorly. This is taken down through subjacent tissue. Bleeders are cauterized. The iliotibial band and gluteal fascia were split in line with the skin incision and retracted with the Charnley retractor. The sciatic nerve was palpated. The hip was then flexed and internally rotated and the piriformis tendon was identified. This was tagged and then released as well as the short external rotators off the posterior aspect of the greater trochanter. The capsule was intact. This was then teed. Has a small hematoma noted in the joint. The head was then removed with a corkscrew. This was measured at 43+ millimeters. At this point the proximal femur was prepared initially taking off about a centimeter of neck leaving 10-12 mm above the lesser trochanter. Using a box osteotome and the canal was opened. Then T-handle reamers were used. The proximal femur. Broaches were used up to a size 3 which was found to fit well. The hip was then trialed using a number 3 stem with a +5 neck and a 43 mm head. The head was trialed prior to reducing the hip. Was felt that a 45 actually fit better and the hip was trialed with a 45 mm head. Hip was stable. No pistoning was noted. This point the hip was dislocated and the trials were reduced. The acetabulum showed no wear. The ligamentum teres was removed. The canal was irrigated after insertion of a bone plug approximately a centimeter and half distal to the tip of the broach. This was an suction. The cement was prepared in the cement gun and when ready was injected into the femur. This was pressurized proxi justine. The number 3 stem was inserted and held in position as excess cement was removed. A stem was placed in about 15 of anteversion. After the cement hardened and excess cement was removed the acetabulum was inspected and no debris was noted. The acetabulum was then irrigated. The bipolar head was inserted onto the neck of the femoral stem and tapped in position. Hip was then reduced and again found to be stable with no pistoning. At this point the wound was irrigated. The capsule was closed with #1 Vicryl. Sutures left long at the edge of the capsule. Her holes were then placed in the posterior aspect of the greater trochanter and the suture from the piriformis was placed through one drill hole and from the capsule through the other. The hip was then placed in neutral as the sutures were tied over the posterior aspect greater trochanter pulling the capsule and piriformis back to the greater trochanter. The hip was again irrigated and then the iliotibial band and gluteal fascia were closed with interrupted [id number] #1 Vicryl sutures. Hip was again irrigated and the subtendinous tissue was closed in layers with #1 Vicryl and 2-0 Vicryl. The skin was then closed with rc. Wound was dressed with antibiotic ointment, Adaptic, 4 x 4's and ABDs. These were then taped in position. The drapes were removed and an abduction pillow was placed between the legs. The patient was then transferred to her hospital bed and then to recovery room in good condition, she tolerated procedure well. Legs were inspected and lengths were equal, lying supine in bed. Patient had symmetrical pulses. An x-ray will be obtained in recovery room. n/a Anesthesia Type Spinal Estimated Blood Loss 150 mL's Replacement none Drains none Packing none. Specimen(s) collected/removed The femoral head was removed and sent to pathology for gross specimen only MAGALY LEON MD Jul 21, 2019 12:38
[2019-07-21] MEDS: LACTOBACILLUS ACIDOPHILUS (PROBIOTIC) CAPSULE PO SCH (19:28)
[2019-07-21] MEDS: ceFAZolin 2 GM IV Premixed 50 ML IV SCH (19:28)
[2019-07-21] MEDS: ASPIRIN E.C. 81 MG (ECOTRIN) TAB PO SCH (19:28)
--- NOTE | 2019-07-21 20:15 | Diagnostic Imaging Report ---
EXAMINATION: Left tibia at 12:37 p.m. INDICATION: Postop. A single AP view was obtained. FINDINGS: In the interval since the prior exam of 07/20/2019, the patient has undergone a surgical procedure. The previous exam did note a slightly displaced, slightly impacted fracture of the subcapital portion of the femoral neck. On this exam, there is now a total hip prosthesis in place. The prosthetic components appear to be in good position on this single view. There is no fracture or acute bony abnormality evident. IMPRESSION: 1. There has been an interval total hip arthroplasty procedure on the left. The orthopedic hardware appears to be in good position. If further evaluation is desired, then a lateral view would be recommended. 2. There is no acute bony abnormality noted. Dictated by: Dictated on workstation # [id number]
[2019-07-21] MEDS: ROSUVASTATIN 20 MG (CRESTOR) TABLET PO SCH (21:22)
[2019-07-21] MEDS: ENOXAPARIN 30 MG/0.3 ML (LOVENOX) SYR SC SCH (22:36)
[2019-07-21] MEDS: HYDROcodone/APAP 10 MG/325 MG (LORTAB) TAB PO PRN (22:36)
[2019-07-21] MEDS ORDERED: ENOXAPARIN 40 MG/0.4 ML (LOVENOX) SYR SC SCH (23:00)
[2019-07-22 00:30] VITALS: BP 105/63
[2019-07-22] MEDS: HYDROcodone/APAP 10 MG/325 MG (LORTAB) TAB PO PRN ×5 (02:35→20:57)
[2019-07-22] MEDS: ceFAZolin 2 GM IV Premixed 50 ML IV SCH ×2 (02:35→10:22)
[2019-07-22 04:32] VITALS: BP 109/64
[2019-07-22] MEDS: NS IV 1000 ML 1,000 ML IV SCH ×3 (04:38→16:07)
[2019-07-22 06:07] LABS: HEMOGLOBIN 9.9 G/DL (11.5-16.0); MEAN PLATELET VOLUME 9.6 FL (7.4-10.4); RED CELL DISTRIBUTION WIDTH 13.2 % (10.0-14.5); WHITE BLOOD COUNT 3.7 10^3/uL (4.3-11.0)
[2019-07-22 06:34] LABS: ALBUMIN 3.5 GM/DL (3.2-4.5); BILIRUBIN,TOTAL 0.6 MG/DL (0.1-1.0); CALCIUM 8.3 MG/DL (8.5-10.1); CREATININE SERUM 1.67 MG/DL (0.60-1.30); POTASSIUM 4.2 MMOL/L (3.6-5.0); TOTAL PROTEIN 5.7 GM/DL (6.4-8.2)
[2019-07-22] MEDS: inSUlin ASPART (NovoLOG) 1 UNIT/0.01 ML (CHARGE PER UNIT) SC SCH ×4 (06:38→20:56)
[2019-07-22] MEDS ORDERED: metFORMIN 500 MG (GLUCOPHAGE) TAB PO SCH (07:00)
[2019-07-22 08:00] VITALS: BP 113/67
--- NOTE | 2019-07-22 08:57 | Progress Note - Ortho ---
Progress Note Subjective Date of Exam 07/22/19 Chief Complaint POD#1 cemented bipolar hemiarthroplasty left hip. Mild left hip pain. The patient was up sitting on the edge of the bed when I saw our getting ready to ambulate full weightbearing left leg with the walker. No other complaints. HPI/Events since last exam Please see above Review of Systems No changes Allergies: Coded Allergies: No Known Drug Allergies (Unverified , 07/20/19) Home Meds Reported Medications Cyanocobalamin/Folic Acid (Vitamin A77-Uhjnh Acid Tablet) 1 Each Tablet, 1 TAB PO HS, TAB 07/21/19 Dulaglutide (Trulicity) 1.5 Mg/0.5 Ml Pen.injctr, 1.5 MG SQ Fr, VIAL 07/21/19 Olanzapine/Fluoxetine HCl (Symbyax 6-25 mg Capsule) 1 Ea Cap, 1 CAP PO HS, CAP 07/21/19 Metformin HCl (Metformin HCl) 500 Mg Tablet, 1000 MG PO DAILY, TAB TAKES 2 (500MG) TABLETS 07/21/19 Rosuvastatin Calcium (Crestor) 20 Mg Tablet, 20 MG PO HS, TAB 07/21/19 Lisinopril (Lisinopril) 2.5 Mg Tablet, 2.5 MG PO 1800, TAB 07/21/19 Aspirin (Aspirin EC) 81 Mg Tablet.dr, 81 MG PO 1800, TAB 07/21/19 Lactobacillus Acidophilus (Acidophilus) 1 Each Capsule, 1 CAP PO 1800, CAP 07/21/19 [Cbd Capsule] No Conflict Check, 1 CAP PO DAILY, CAP 07/21/19 Zolpidem Tartrate (Zolpidem Tartrate) 10 Mg Tablet, 10 MG PO HS, TAB 07/21/19 Objective Exam Constitutional: [] HEENT: [] Neck: [] Cardiovascular: [] Respiratory: [] Gastrointestinal: [] Genitourinary: [] Skin: [] Back/Spine: [] Extremities: [Left hip dressing is intact. No drainage. No calf tenderness. Negative Homans. Neurovascularly intact to the left lower extremity] Neurologic: [] Psychiatric: [] Hematologic/lymphatic/immunologic: [] Vital Signs Vital Signs Date Time Temp Pulse Resp B/P (MAP) Pulse Ox O2 Delivery O2 Flow Rate FiO2 07/22/19 08:00 98.6 80 18 113/67 (82) 93 Room Air 07/22/19 04:32 97.2 75 18 109/64 (79) 96 Room Air 07/22/19 00:30 98.2 79 18 105/63 (77) 94 Room Air 07/21/19 20:50 97.8 73 18 108/63 (78) 95 Room Air 07/21/19 20:10 Room Air 07/21/19 16:09 96.8 62 18 125/63 (83) 100 Room Air 07/21/19 13:00 97.2 16 98 Room Air 07/21/19 13:00 Room Air 07/21/19 13:00 96.0 57 16 115/67 (83) 99 Room Air 07/21/19 12:50 16 98 Room Air 07/21/19 12:50 Room Air 07/21/19 12:35 14 99 Room Air 07/21/19 12:35 Room Air 07/21/19 12:20 14 99 Room Air 07/21/19 12:20 Room Air 07/21/19 12:06 Room Air 07/21/19 12:06 97.0 12 99 Room Air I & O 07/22/19 07:00 Intake Total 2870 ml Output Total 995 ml Balance 1875 ml Lab Results Laboratory Tests 07/21/19 13:14: Glucometer 242H 07/21/19 16:09: Glucometer 256H 07/21/19 20:50: Glucometer 246H 07/22/19 05:17: Glucometer 192H 07/22/19 05:19: White Blood Count 3.7L, Red Blood Count 3.39L, Hemoglobin 9.9L, Hematocrit 31L, Mean Corpuscular Volume 91, Mean Corpuscular Hemoglobin 29, Mean Corpuscular Hemoglobin Concent 32, Red Cell Distribution Width 13.2, Platelet Count 166, Mean Platelet Volume 9.6, Sodium Level 139, Potassium Level 4.2, Chloride Level 111H, Carbon Dioxide Level 20L, Anion Gap 8, Blood Urea Nitrogen 14, Creatinine 1.67H, Estimat Glomerular Filtration Rate 30, BUN/Creatinine Ratio 8, Glucose Level 196H, Calcium Level 8.3L, Corrected Calcium 8.7, Total Bilirubin 0.6, Aspartate Amino Transf (AST/SGOT) 59H, Alanine Aminotransferase (ALT/SGPT) 28, A lkaline Phosphatase 264H, Total Protein 5.7L, Albumin 3.5 Microbiology 07/20/19 MRSA Screen - Final, Complete MRSA not isolated Assessment and Plan Assessment Doing well first day postop cemented bipolar hemiarthroplasty left hip Problem List Unchanged Plan Physical therapy, walker ambulation weightbearing as tolerated on the left Final Diagonsis Status post cemented bipolar hemiarthroplasty left hip for a mildly displaced subcapital fracture Level of the visit: Level 3 Clinical Quality Measures DVT/VTE Risk/Contraindication: Risk Factor Score Per Nursin RFS Level Per Nursing on Admit: 4+=Very High MAGALY LEON MD Jul 22, 2019 08:57
[2019-07-22] MEDS: FOLIC ACID 1 MG TAB PO SCH ×2 (09:13→20:55)
[2019-07-22] MEDS: ONDANSETRON 4 MG/2 ML (SDV) Z0FRAN IV PRN (09:13)
--- NOTE | 2019-07-22 09:15 | Occupational Therapy Eval ---
OT Evaluation-General/PLF Medical Diagnosis Admission Date Jul 20, 2019 at 14:34 Medical Diagnosis: left hip fracture Onset Date: Jul 17, 2019 Therapy Diagnosis Therapy Diagnosis: decreased self care skills Height/Weight Height (Feet): 5 Height (Inches): 3.00 Weight (Pounds): 160 Weight (Ounces): 0.0 Precautions Precautions/Isolations: Standard Precautions Weight Bear Status Weight Bearing Restriction: Weight Bearing/Tolerated Referral Physician: Arabella Medical History Pertinent Medical History: DM, HTN Additional Medical History high cholesterol Current History Pt fell on 07/17. Presented to hospital on 07/20 and was diagnosed with left hip fracture. Bipolar hemiarthroplasty on 07/21 Social History Home: Single Level Current Living Status: Spouse Entry Into Home: Stairs With Railing Steps Into Home: 2 ADL-Prior Level of Function Therapy Code Descriptions/Definitions Functional [place] Measure: 0=Not Assessed/NA 4=Minimal Assistance 1=Total Assistance 5=Supervision or Setup 2=Maximal Assistance 6=Modified [place] 3=Moderate Assistance 7=Complete [place] Therapy Quality Codes: 6 Independent with activity with or without an assistive device 5 Patient requires set up or clean up by helper. Patient completes activity by themselves 4 Supervision or touching assist (CGA). [place] provide cues , steadying assist 3 The helper provides less than half the effort to complete the activity 2 The helper provides more than half the effort to complete the activity 1 Dependent. The helper does all the effort to complete an activity 7 Patient refused to complete or attempt activity 9 The patient did not perform the activity before the current illness or injury 88 Not attempted due to Medical conditions or safety concerns Functional Abilities and Goals: Independent: Patient completed the activities by him/herself, with or without an assistive device, with no assistance from a helper. Needed Some Help: Patient needed partial assistance from another person to c omplete activities. Dependent: A helper completed the activities for the patient. Unknown: Not Applicable: ADL PLOF Comments Pt reports being independent with basic self care and mobility prior to fall. Self Care: Independent Functional Cognition: Independent DME/Equipment: Grab Bars, Tub/Shower Drive Self: No OT Current Status Subjective Pt in bed, agrees to therapy. Pt reports pain in left hip, but does not rate. Mental Status/Objective Patient Orientation: Person, Place, Situation Attachments: German Catheter, IV Current Hand Dominance: Right Upper Extremity ROM Grossly WFL Upper Extremity Coordination Intact Upper Extremity Strength Functional ADL-Treatment ADL-Current Education provided regarding hip precautions and completion of ADL tasks. Will follow up in future sessions. PT present for mobility during session. Pt completed supine to sit with min assist for LE. Sit to stand from raised bed. Pt able to take steps to with FWW and transfer to chair. Cues for walker use and mobility safety. Pt fatigues with activity. While sitting up in chair pt washed face with set up. Pt reports mild nausea, states she thinks she needs to eat. RN notified of nausea. Assisted pt in ordering breakfast. Pt able to reposition self in chair, denied needs at this time. Discussed role of OT and plan of care. Pt states understanding of education and is agreeable to plan. Pt sitting up in chair with needs met after session. Therapy Code Descriptions/Definitions Functional [place] Measure: 0=Not Assessed/NA 4=Minimal Assistance 1=Total Assistance 5=Supervision or Setup 2=Maximal Assistance 6=Modified [place] 3=Moderate Assistance 7=Complete [place] Therapy Quality Codes: 6 Independent with activity with or without an assistive device 5 Patient requires set up or clean up by helper. Patient completes activity by themselves 4 Supervision or touching assist (CGA). [place] provide cues , steadying assist 3 The helper provides less than half the effort to complete the activity 2 The helper provides more than half the effort to complete the activity 1 Dependent. The helper does all the effort to complete an activity 7 Patient refused to complete or attempt activity 9 The patient did not perform the activity before the current illness or injury 88 Not attempted due to Medical conditions or safety concerns Eating (FIM): 5 Grooming (FIM): 5 Education OT Patient Education: Rehab process Teaching Recipient: Patient Teaching Methods: Discussion Response to Teaching: Verbalize Understanding OT Short Term Goals Short Term Goals 1=Demonstrate adherence to instructed precautions during ADL tasks. 2=Patient will verbalize/demonstrate understanding of assistive devices/modifications for ADL. 3=Patient will improve strength/tolerance for activity to enable patient to perform ADL's. OT Shelter Goals Liquor Department Manager Goals Time Frame: Aug 05, 2019 Grooming(FIM): 6 Bathing(FIM): 5 Upper Body Dressing(FIM): 6 Lower Body Dressing(FIM): 5 Toileting(FIM): 6 Toilet/Commode Transfer(FIM): 6 Additional Goals: 1-Demonstrate ADL Tasks, 2-Verbalize Understanding, 3- ImproveStrength/Layla 1=Demonstrate adherence to instructed precautions during ADL tasks. 2=Patient will verbalize/demonstrate understanding of assistive devic es/modifications for ADL. 3=Patient will improve strength/tolerance for activity to enable patient to perform ADL's. OT Education/Plan Problem List/Assessment Assessment: Decreased Activ Tolerance, Decreased UE Strength, Dependent Transfers, Impaired Self-Care Skills Pt to benefit from skilled OT intervention for ADL training, transfers, adaptive equipment training, and home safety education to increase level of independence and allow safe discharge home. Discharge Recommendations Plan/Recommendations: Continue POC Treatment Plan/Plan of Care Treatment,Training & Education: Yes Patient would benefit from OT for education, treatment and training to promote independence in ADL's, mobility, safety and/or upper extremity function for ADL's. Plan of Care: ADL Retraining, Functional Mobility, UE Funct Exercise/Act Treatment Duration: Aug 05, 2019 Frequency: 5 times per week Estimated Hrs Per Day: .25 hour per day Rehab Potential: Good Time/GCodes Start Time: 08:28 Stop Time: 09:03 Total Time Billed (hr/min): 35 Billed Treatment Time 1 visit, EVL(20minutes) Partial co-treat with PT JEANIE PHIPPS OT Jul 22, 2019 09:15
[2019-07-22 12:01] VITALS: BP 107/65
--- NOTE | 2019-07-22 12:23 | Progress Note - Hospitalist ---
Subjective HPI/CC On Admission Date Seen by Provider: Jul 22, 2019 Time Seen by Provider: 11:30 Subjective/Events-last exam Patient felt a little lightheaded and nauseated and took some Zofran. She was able to perform physical therapy with weightbearing this morning. She denied chest pain or shortness of breath. Objective Exam Vital Signs Vital Signs Date Time Temp Pulse Resp B/P (MAP) Pulse Ox O2 Delivery O2 Flow Rate FiO2 07/22/19 12:01 98.0 81 18 107/65 (79) 99 Room Air Capillary Refill : Less Than 3 SecondsLess Than 3 Seconds General Appearance: No Apparent Distress Respiratory: Chest Non Tender, Lungs Clear, Normal Breath Sounds, No Accessory Muscle Use, No Respiratory Distress Cardiovascular: Regular Rate, Rhythm, No Edema, No Gallop, No JVD, No Murmur, Normal Peripheral Pulses Results/Procedures Lab Laboratory Tests 07/22/19 05:19 Patient resulted labs reviewed. Assessment/Plan Assessment and Plan Assess & Plan/Chief Complaint 1. Postop day 1 the left left total hip replacement for fracture from fall not at height osteoporosis likely continue physical therapy. 2. Type II diabetes mellitus blood sugars moderating on sliding scale insulin patient's was instructed to bring in trulicity as she missed her injection yesterday and we will give 1.5 mg subcutaneous today. 3. Systolic blood pressures 100-110 supine will hold lisinopril. Clinical Quality Measures DVT/VTE Risk/Contraindication: Risk Factor Score Per Nursin RFS Level Per Nursing on Admit: 4+=Very High MALVIN AMEZQUITA MD Jul 22, 2019 12:23
--- NOTE | 2019-07-22 12:24 | Physical Therapy Evaluation ---
PT Evaluation-General Medical Diagnosis Admission Date Jul 20, 2019 at 14:34 Medical Diagnosis: left hip fracture Onset Date: Jul 17, 2019 Therapy Diagnosis Therapy Diagnosis: impaired gait and functional mobility Height/Weight Height (Feet): 5 Height (Inches): 3.00 Weight (Pounds): 160 Weight (Ounces): 0.0 Precautions Precautions/Isolations: Standard Precautions Weight Bear Status Right Lower Extremity: Right Full Weight Bearing Left Lower Extremity: Left Weight Bearing/Tolerated Referral Physician: Arabella Reason for Referral: Evaluation/Treatment, Gait Medical History Pertinent Medical History: DM, HTN Current History Pt fell 07/17 and sustained a left hip fx. She underwent a THR 07/21/19. Social History Home: Single Level Current Living Status: Spouse Entry Into Home: Stairs With Railing PT Steps Into Home: 2 Prior/Core FIM Prior Level of Function Therapy Code Descriptions/Definitions Functional [place] Measure: 0=Not Assessed/NA 4=Minimal Assistance 1=Total Assistance 5=Supervision or Setup 2=Maximal Assistance 6=Modified [place] 3=Moderate Assistance 7=Complete [place] Therapy Quality Codes: 6 Independent with activity with or without an assistive device 5 Patient requires set up or clean up by helper. Patient completes activity by themselves 4 Supervision or touching assist (CGA). [place] provide cues , steadying assist 3 The helper provides less than half the effort to complete the activity 2 The helper provides more than half the effort to complete the activity 1 Dependent. The helper does all the effort to complete an activity 7 Patient refused to complete or attempt activity 9 The patient did not perform the activity before the current illness or injury 88 Not attempted due to Medical conditions or safety concerns Functional Abilities and Goals: Independent: Patient completed the activities by him/herself, with or without an assistive device, with no assistance from a helper. Needed Some Help: Patient needed partial assistance from another person to complete activities. Dependent: A helper completed the activities for the patient. Unknown: Not Applicable: Bed Mobility: 7 Transfers (B,C,W/C) (FIM): 7 Gait: 7 Stairs: 7 PT Evaluation-Current Subjective Pt reports she is not sure why she fell on 07/17/19. Her was able to help her to her feet. She waited several days before asking to be taken to the hospital for pain. Pt was found to have a hip fracture and underwent GIAN on 07/21/19. Objective Patient Orientation: Normal For Age Problem Solving: Good Attachments: IV ROM/Strength ROM Lower Extremities (L) hip flex 90, abd 15 deg Strength Lower Extremities left hip gross 2+/5 for hip flex and abd, (L) knee 4/5 Sensory Hand Dominance: Right Transfers Therapy Code Descriptions/Definitions Functional [place] Measure: 0=Not Assessed/NA 4=Minimal Assistance 1=Total Assistance 5=Supervision or Setup 2=Maximal Assistance 6=Modified [place] 3=Moderate Assistance 7=Complete [place] Transfers (B, C, W/C) (FIM): 4 Scootin Supine to/from Sit: 4 Sit to/from Stand: 4 needed min assist to lift the left leg in/out of bed Gait Anticipated Mode of Locomotion: Walk Distance (FIM): 1=up to 49 ft Distance: 10 Gait Level of Assist: 4 Gait Persons Needed: 1 Gait Assistive Device: FWW Comments/Gait Description Ambulate 10ft with FWW and verbal cues for sequence and use of walker. Balance Sitting Static: Good Sitting Dynamic: Good Standing Static: Fair Standing Dynamic: Fair Assessment/Needs Patient is 1 day s/p total hip replacement. She has impaired strength and ROM in the left leg. Functional deficits include transfers, bed mobility, and gait. She will benefit from PT to promote return to Modified independent mobility to allow d/c to home. Rehab Potential: Good PT Short Term Goals Short Term Goals Time Frame: Jul 26, 2019 Transfers (B,C,W/C) (FIM): 5 Gait (FIM): 5 Distance (FIM): 3=150 ft Gait Level of Assist: 5 Gait Assistive Device: FWW # of Steps: 3 Stairs Level of Assist: 5 PT Wirer Passenger Car Goals Custodial Goals PT Custodial Goals Time Frame: Jul 28, 2019 Transfers (B,C,W/C) (FIM): 6 Gait (FIM): 6 Gait Assistive Device: FWW # of Steps: 3 Stairs Level Of Assist: 5 PT Plan Problem List Problem List: Activity Tolerance, Functional Strength, Safety, Balance, Gait, Transfer, Bed Mobility, ROM Treatment/Plan Treatment Plan: Continue Plan of Care Treatment Plan: Bed Mobility, Functional Activity Layla, Functional Strength, Gait, Safety, Therapeutic Exercise, Transfers Frequency: 11 times per week Estimated Hrs Per Day: .25 hour per day Patient and/or Family Agrees t: Yes Safety Risks/Education Patient Education: Gait Training, Reviewed Precautions Teaching Recipient: Patient Teaching Methods: Demonstration, Discussion Discharge Recommendations Barriers to Progress none Target Placement home Time/GCodes Time In: 830 Time Out: 855 Total Billed Treatment Time: 25 Total Billed Treatment visit, beverley moderate complexity 25 min BHARAT GODFREY PT Jul 22, 2019 12:24
[2019-07-22 16:04] VITALS: BP 108/67
[2019-07-22] MEDS: LACTOBACILLUS ACIDOPHILUS (PROBIOTIC) CAPSULE PO SCH (17:12)
[2019-07-22] MEDS: ASPIRIN E.C. 81 MG (ECOTRIN) TAB PO SCH (17:12)
[2019-07-22] MEDS ORDERED: lisINopril 5 MG (PRINIVIL) TABLET PO SCH (18:00)
[2019-07-22 20:26] VITALS: BP 107/65
[2019-07-22] MEDS: ROSUVASTATIN 20 MG (CRESTOR) TABLET PO SCH (21:00)
[2019-07-22] MEDS: ENOXAPARIN 30 MG/0.3 ML (LOVENOX) SYR SC SCH (22:20)
[2019-07-23] VITALS (7 sets, daily range): BP systolic 98–138; BP diastolic 56–78
[2019-07-23] MEDS: ONDANSETRON 4 MG/2 ML (SDV) Z0FRAN IV PRN (00:21)
[2019-07-23] MEDS: HYDROcodone/APAP 10 MG/325 MG (LORTAB) TAB PO PRN ×4 (04:36→23:41)
[2019-07-23] MEDS: NS IV 1000 ML 1,000 ML IV SCH (04:39)
[2019-07-23 05:45] LABS: HEMOGLOBIN 9.1 G/DL (11.5-16.0)
[2019-07-23] MEDS: inSUlin ASPART (NovoLOG) 1 UNIT/0.01 ML (CHARGE PER UNIT) SC SCH ×4 (06:40→20:35)
--- NOTE | 2019-07-23 09:04 | Progress Note - Ortho ---
Progress Note Subjective Date of Exam 07/23/19 Chief Complaint Her only complaint is constipation. Her hip pain is decreasing. HPI/Events since last exam Mrs. Harris is 2 days postop cemented bipolar hemiarthroplasty left hip. She's been up ambulating with a walker full weightbearing. Mild pain. Her dressing was changed yesterday and the nurse stated that her wound looks good without redness or drainage. Review of Systems Reviewed and no additions or changes Allergies: Coded Allergies: No Known Drug Allergies (Unverified , 07/20/19) Home Meds Reported Medications Cyanocobalamin/Folic Acid (Vitamin F85-Sjlsj Acid Tablet) 1 Each Tablet, 1 TAB PO HS, TAB 07/21/19 Dulaglutide (Trulicity) 1.5 Mg/0.5 Ml Pen.injctr, 1.5 MG SQ Fr, VIAL 07/21/19 Olanzapine/Fluoxetine HCl (Symbyax 6-25 mg Capsule) 1 Ea Cap, 1 CAP PO HS, CAP 07/21/19 Metformin HCl (Metformin HCl) 500 Mg Tablet, 1000 MG PO DAILY, TAB TAKES 2 (500MG) TABLETS 07/21/19 Rosuvastatin Calcium (Crestor) 20 Mg Tablet, 20 MG PO HS, TAB 07/21/19 Lisinopril (Lisinopril) 2.5 Mg Tablet, 2.5 MG PO 1800, TAB 07/21/19 Aspirin (Aspirin EC) 81 Mg Tablet.dr, 81 MG PO 1800, TAB 07/21/19 Lactobacillus Acidophilus (Acidophilus) 1 Each Capsule, 1 CAP PO 1800, CAP 07/21/19 [Cbd Capsule] No Conflict Check, 1 CAP PO DAILY, CAP 07/21/19 Zolpidem Tartrate (Zolpidem Tartrate) 10 Mg Tablet, 10 MG PO HS, TAB 07/21/19 Objective Exam Constitutional: [] HEENT: [] Neck: [] Cardiovascular: [] Respiratory: [] Gastrointestinal: [] Genitourinary: [] Skin: [] Back/Spine: [] Extremities: [Dressing is intact with minimal serous drainage. The dressing was changed yesterday. No calf tenderness and negative Homans. She is neurov ascularly intact in both lower extremities. Good position of both legs.] Neurologic: [] Psychiatric: [] Hematologic/lymphatic/immunologic: [] Vital Signs Vital Signs Date Time Temp Pulse Resp B/P (MAP) Pulse Ox O2 Delivery O2 Flow Rate FiO2 07/23/19 08:00 Room Air 07/23/19 04:00 97.7 76 20 118/70 (86) 97 Room Air 07/23/19 00:05 97.8 83 20 120/56 (77) 97 Room Air 07/22/19 20:26 97.9 75 18 107/65 (79) 97 Room Air 07/22/19 20:00 Room Air 07/22/19 16:04 97.9 75 18 108/67 (81) 98 Room Air 07/22/19 12:01 98.0 81 18 107/65 (79) 99 Room Air 07/22/19 09:15 Room Air I & O 07/23/19 07:00 Intake Total 2350 ml Output Total 1475 ml Balance 875 ml Lab Results Laboratory Tests 07/22/19 11:15: Glucometer 229H 07/22/19 15:50: Glucometer 235H 07/22/19 20:43: Glucometer 244H 07/23/19 05:32: Hemoglobin 9.1L, Hematocrit 28L 07/23/19 06:02: Glucometer 196H Microbiology 07/20/19 MRSA Screen - Final, Complete MRSA not isolated Assessment and Plan Assessment Doing well postop cemented bipolar hemiarthroplasty left hip Problem List No additions or changes Plan Continue physical therapy walker ambulation weightbearing as tolerated Final Diagonsis 2 days postop cemented bipolar hemiarthroplasty left hip Level of the visit: Level 3 Clinical Quality Measures DVT/VTE Risk/Contraindication: Risk Factor Score Per Nursin RFS Level Per Nursing on Admit: 4+=Very High MAGALY LEON MD Jul 23, 2019 09:04
--- NOTE | 2019-07-23 09:17 | Anesthesia-General Post-Op ---
General Patient Condition Mental Status/LOC: Same as Preop Cardiovascular: Satisfactory Nausea/Vomiting: Absent Respiratory: Satisfactory Pain: Controlled Complications: Absent Post Op Complications Complications None Follow Up Care/Instructions Patient Instructions None needed. Anesthesia/Patient Condition Patient Condition Patient is doing well, no complaints, stable vital signs, no apparent adverse anesthesia problems. No complications reported per nursing. PAMELA JOHNSON CRNA Jul 23, 2019 09:17
--- NOTE | 2019-07-23 10:38 | Progress Note - Hospitalist ---
Subjective HPI/CC On Admission Date Seen by Provider: Jul 23, 2019 Time Seen by Provider: 09:45 Subjective/Events-last exam Patient reports exacerbation of hip pain after prolonged attempt of a bowel movement that was unsuccessful. She reports no other complaints is had no chest pain or shortness of breath. She's also had no night sweats chills or fever. Objective Exam Vital Signs Vital Signs Date Time Temp Pulse Resp B/P (MAP) Pulse Ox O2 Delivery O2 Flow Rate FiO2 07/23/19 08:00 Room Air 07/23/19 08:00 97.8 83 18 110/65 (80) 96 Capillary Refill : Less Than 3 SecondsLess Than 3 Seconds General Appearance: Anxious, Mild Distress Respiratory: Chest Non Tender, Lungs Clear, Normal Breath Sounds, No Accessory Muscle Use, No Respiratory Distress Cardiovascular: Regular Rate, Rhythm, No Edema, No Gallop, No JVD, No Murmur Gastrointestinal: Normal Bowel Sounds, No Organomegaly, No Pulsatile Mass, Non Tender, Soft Results/Procedures Lab Laboratory Tests 07/23/19 05:32 Patient resulted labs reviewed. Assessment/Plan Assessment and Plan Assess & Plan/Chief Complaint 1. Postop day 2 the left left total hip replacement for fracture from fall not at height osteoporosis likely continue physical therapy. 2. Type II diabetes mellitus blood sugars moderating on sliding scale insulin patient's was instructed to bring in trulicity as she missed her inject ion yesterday and we will give 1.5 mg subcutaneous today. 3. Systolic blood off lisinopril up slightly to the 110-120 range supine will continue to hold lisinopril. 4. Postop and post narcotic constipation will initiate Senokot 1 by mouth twice a day. Clinical Quality Measures DVT/VTE Risk/Contraindication: Risk Factor Score Per Nursin RFS Level Per Nursing on Admit: 4+=Very High MALVIN AMEZQUITA MD Jul 23, 2019 10:38
[2019-07-23] MEDS ORDERED: SENNA W/DOCUSATE (SENOKOT S) TABLET PO NR (10:46)
[2019-07-23] MEDS ORDERED: ONDANSETRON 4 MG (ZOFRAN) ORAL DISSOLVE TAB PO PRN (13:45)
--- NOTE | 2019-07-23 13:49 | NUR ---
PT ACCIDENTALLY PULLED OUT IV. PT NOT RECEIVING ANY SCHEDULED IV MEDICATION. ASKED DR. AMEZQUITA IF THE IV COULD BE LEFT OUT. DR. AMEZQUITA AGREED. NEW ORDER FOR ZOFRAN 4MG PO Q6H PRN.
--- NOTE | 2019-07-23 15:17 | Physical Therapy Daily Note ---
PT Daily Note-Current Subjective Pt feels like she has regressed noted increased pain that makes it more difficult to move. Pain levels 7/10. Mental Status Patient Orientation: Normal For Age Transfers Therapy Code Descriptions/Definitions Functional [place] Measure: 0=Not Assessed/NA 4=Minimal Assistance 1=Total Assistance 5=Supervision or Setup 2=Maximal Assistance 6=Modified [place] 3=Moderate Assistance 7=Complete [place] Therapy Quality Codes: 6 Independent with activity with or without an assistive device 5 Patient requires set up or clean up by helper. Patient completes activity by themselves 4 Supervision or touching assist (CGA). [place] provide cues , steadying assist 3 The helper provides less than half the effort to complete the activity 2 The helper provides more than half the effort to complete the activity 1 Dependent. The helper does all the effort to complete an activity 7 Patient refused to complete or attempt activity 9 The patient did not perform the activity before the current illness or injury 88 Not attempted due to Medical conditions or safety concerns Transfers (B, C, W/C) (FIM): 4 Sit to/from Stand: 4 Bed to/from Chair: 4 needs verbal cues for sequence and hip precautions. Weight Bearing Right Lower Extremity: Right Full Weight Bearing Left Lower Extremity: Left Weight Bearing/Tolerated Gait Training Gait (FIM): 2 Distance: 25 Gait Level of Assist: 4 Gait Persons Needed: 1 Gait Assistive Device: FWW verbal cues for sequence of walker, involved foot, non-involved foot. Step to sequence was needed to accommodate for pain during (L) wt bearing. Exercises Supine Ex: LE Protocol Supine Reps: 5 PT Short Term Goals Short Term Goals Time Frame: Jul 26, 2019 Transfers (B,C,W/C) (FIM): 5 Gait (FIM): 5 Distance (FIM): 3=150 ft Gait Level of Assist: 5 Gait Assistive Device: FWW # of Steps: 3 Stairs Level of Assist: 5 PT Halfway Goals Ironworker Goals PT Halfway Goals Time Frame: Jul 28, 2019 Transfers (B,C,W/C) (FIM): 6 Gait (FIM): 6 Gait Assistive Device: FWW # of Steps: 3 Stairs Level Of Assist: 5 PT Plan Treatment/Plan Treatment Plan: Continue Plan of Care Treatment Plan: Bed Mobility, Functional Activity Layla, Functional Strength, Gait, Safety, Therapeutic Exercise, Transfers Frequency: 11 times per week Estimated Hrs Per Day: .25 hour per day Patient and/or Family Agrees t: Yes Time/GCodes Time In: 1450 Time Out: 1510 Total Billed Treatment Time: 20 Total Billed Treatment visit, gt 15 min, ex 5 min BHARAT GODFREY PT Jul 23, 2019 15:17
[2019-07-23] MEDS: LACTOBACILLUS ACIDOPHILUS (PROBIOTIC) CAPSULE PO SCH (18:42)
[2019-07-23] MEDS: ASPIRIN E.C. 81 MG (ECOTRIN) TAB PO SCH (18:43)
[2019-07-23] MEDS: FOLIC ACID 1 MG TAB PO SCH (20:34)
[2019-07-23] MEDS: ROSUVASTATIN 20 MG (CRESTOR) TABLET PO SCH (20:34)
[2019-07-23] MEDS: SENNA W/DOCUSATE (SENOKOT S) TABLET PO SCH (20:34)
[2019-07-23] MEDS: ZOLPIDEM 5 MG (AMBIEN) TAB PO PRN (20:34)
[2019-07-23] MEDS: ENOXAPARIN 30 MG/0.3 ML (LOVENOX) SYR SC SCH (23:40)
[2019-07-24] MEDS: HYDROcodone/APAP 10 MG/325 MG (LORTAB) TAB PO PRN ×3 (05:19→19:32)
[2019-07-24] MEDS: inSUlin ASPART (NovoLOG) 1 UNIT/0.01 ML (CHARGE PER UNIT) SC SCH ×4 (05:19→21:31)
[2019-07-24 05:38] LABS: HEMOGLOBIN 8.9 G/DL (11.5-16.0)
[2019-07-24 08:00] VITALS: BP 111/53
[2019-07-24] MEDS: SENNA W/DOCUSATE (SENOKOT S) TABLET PO SCH ×2 (09:18→20:41)
--- NOTE | 2019-07-24 09:22 | Progress Note - Ortho ---
Progress Note Subjective Date of Exam 07/24/19 Chief Complaint 3 days postop cemented bipolar hemiarthroplasty left hip HPI/Events since last exam The patient is 3 days postop cemented bipolar hemiarthroplasty left hip. She is up ambulating with a walker full weightbearing without any problems. No other complaints. Review of Systems Reviewed and no additions or changes Allergies: Coded Allergies: No Known Drug Allergies (Unverified , 07/20/19) Home Meds Reported Medications Cyanocobalamin/Folic Acid (Vitamin Z47-Guxiq Acid Tablet) 1 Each Tablet, 1 TAB PO HS, TAB 07/21/19 Dulaglutide (Trulicity) 1.5 Mg/0.5 Ml Pen.injctr, 1.5 MG SQ Fr, VIAL 07/21/19 Olanzapine/Fluoxetine HCl (Symbyax 6-25 mg Capsule) 1 Ea Cap, 1 CAP PO HS, CAP 07/21/19 Metformin HCl (Metformin HCl) 500 Mg Tablet, 1000 MG PO DAILY, TAB TAKES 2 (500MG) TABLETS 07/21/19 Rosuvastatin Calcium (Crestor) 20 Mg Tablet, 20 MG PO HS, TAB 07/21/19 Lisinopril (Lisinopril) 2.5 Mg Tablet, 2.5 MG PO 1800, TAB 07/21/19 Aspirin (Aspirin EC) 81 Mg Tablet.dr, 81 MG PO 1800, TAB 07/21/19 Lactobacillus Acidophilus (Acidophilus) 1 Each Capsule, 1 CAP PO 1800, CAP 07/21/19 [Cbd Capsule] No Conflict Check, 1 CAP PO DAILY, CAP 07/21/19 Zolpidem Tartrate (Zolpidem Tartrate) 10 Mg Tablet, 10 MG PO HS, TAB 07/21/19 Objective Exam Constitutional: [] HEENT: [] Neck: [] Cardiovascular: [] Respiratory: [] Gastrointestinal: [] Genitourinary: [] Skin: [] Back/Spine: [] Extremities: Wound shows good healing without redness or drainage. Still bruising. No calf tenderness and negative Homans. Good position of left leg symmetrical to the right. Neurovascular status intact to the left lower extremity with no weakness, good pulses, good sensation [] Neurologic: [] Psychiatric: [] Hematologic/lymphatic/immunologic: [] Vital Signs Vital Signs Date Time Temp Pulse Resp B/P (MAP) Pulse Ox O2 Delivery O2 Flow Rate FiO2 07/24/19 08:00 Room Air 07/23/19 23:44 98.5 85 18 138/78 (98) 96 Room Air 07/23/19 20:00 Room Air 07/23/19 19:56 98.5 83 18 117/69 (85) 96 Room Air 07/23/19 16:00 98.1 83 18 98/60 (73) 96 Room Air 07/23/19 12:00 98.0 82 18 98/63 (75) 98 Room Air I & O 07/24/19 06:59 Intake Total 2250 ml Output Total 500 ml Balance 1750 ml Lab Results Laboratory Tests 07/23/19 11:18: Glucometer 291H 07/23/19 16:15: Glucometer 201H 07/23/19 20:09: Glucometer 257H 07/24/19 05:00: Hemoglobin 8.9L, Hematocrit 27L 07/24/19 05:18: Glucometer 125H Microbiology 07/20/19 MRSA Screen - Final, Complete MRSA not isolated Assessment and Plan Assessment Doing well 3 days postop cemented bipolar hemiarthroplasty left hip Problem List No changes Plan Continue walker ambulation weightbearing as tolerated on the left. Applied dressing today. The patient like to be discharged to home. From an orthopedic point of view I think she could be discharged. She has family members that can help her at home. She will need home health for physical therapy. If she is discharged today follow-up in the office in approximately 2 weeks postop. Sometime the week of 08/07 for staple removal and x-rays of the left hip. She has any problems prior to her follow-up I will be out of town in Dr. Case is covering for me and we will see her as any issues or problems Final Diagonsis Status post cemented bipolar hemiarthroplasty of the left hip for a mildly displaced subcapital fracture Level of the visit: Level 3 Clinical Quality Measures DVT/VTE Risk/Contraindication: Risk Factor Score Per Nursin RFS Level Per Nursing on Admit: 4+=Very High MAGALY LEON MD Jul 24, 2019 09:22
--- NOTE | 2019-07-24 09:52 | Physical Therapy Daily Note ---
PT Daily Note-Current Subjective Patient reports she desires to return to home on this date. Ortho physician in and agrees. Patient agrees to PT. Pain Numeric Pain Scale: 5-Moderate Pain Location: Left Location Body Site: Hip Pain Description: Acute Mental Status Patient Orientation: Normal For Age Transfers Therapy Code Descriptions/Definitions Functional [place] Measure: 0=Not Assessed/NA 4=Minimal Assistance 1=Total Assistance 5=Supervision or Setup 2=Maximal Assistance 6=Modified [place] 3=Moderate Assistance 7=Complete [place] Therapy Quality Codes: 6 Independent with activity with or without an assistive device 5 Patient requires set up or clean up by helper. Patient completes activity by themselves 4 Supervision or touching assist (CGA). [place] provide cues , steadying assist 3 The helper provides less than half the effort to complete the activity 2 The helper provides more than half the effort to complete the activity 1 Dependent. The helper does all the effort to complete an activity 7 Patient refused to complete or attempt activity 9 The patient did not perform the activity before the current illness or injury 88 Not attempted due to Medical conditions or safety concerns Transfers (B, C, W/C) (FIM): 6 Scootin Rollin Supine to/from Sit: 6 Sit to/from Stand: 6 Bed to/from Chair: 6 Weight Bearing Right Lower Extremity: Right Full Weight Bearing Left Lower Extremity: Left Weight Bearing/Tolerated Gait Training Gait (FIM): 6 Distance (FIM): 3=150 ft Distance: 200' Gait Level of Assist: 6 Gait Assistive Device: FWW safe and functional/PT instructed patient and nursing for patient to be up ad beatris in room and hallway on this date. Exercises Seated Therapy Exercises: Ankle pumps, Long arc quads, Hip flexion Seated Reps: 15 (2 sets) Assessment Patient tolerated treatment and is highly motivated with progress and ability to return to home with home health. PT Short Term Goals Short Term Goals Time Frame: Jul 26, 2019 Transfers (B,C,W/C) (FIM): 5 Gait (FIM): 5 Distance (FIM): 3=150 ft Gait Level of Assist: 5 Gait Assistive Device: FWW # of Steps: 3 Stairs Level of Assist: 5 PT Physiatrist Goals Physiatrist Goals PT Shelter Goals Time Frame: Jul 28, 2019 Transfers (B,C,W/C) (FIM): 6 Gait (FIM): 6 Gait Assistive Device: FWW # of Steps: 3 Stairs Level Of Assist: 5 PT Plan Treatment/Plan Treatment Plan: Continue Plan of Care Treatment Plan: Bed Mobility, Functional Activity Layla, Functional Strength, Gait, Safety, Therapeutic Exercise, Transfers Frequency: 11 times per week Estimated Hrs Per Day: .25 hour per day Patient and/or Family Agrees t: Yes Time/GCodes Time In: 828 Time Out: 851 Total Billed Treatment Time: 23 Total Billed Treatment 1 visit EX 9 min GT 14 min KELLIE RIVERS PT Jul 24, 2019 09:52
--- NOTE | 2019-07-24 14:21 | Occupational Ther Daily Note ---
OT Current Status-Daily Note Subjective Pt upright in recliner at start of session, agreed to OT tx. Pt stated she is ready to go home and is hopeful she will be able to d/c tomorrow. Pt did not verbalize pain rating this tx. Mental Status/Objective Patient Orientation: Normal For Age Therapy Code Descriptions/Definitions Functional [place] Measure: 0=Not Assessed/NA 4=Minimal Assistance 1=Total Assistance 5=Supervision or Setup 2=Maximal Assistance 6=Modified [place] 3=Moderate Assistance 7=Complete [place] ADL-Treatment Lower Body Dressing (FIM): 3 (1/2 complete. Pt seated in recliner, reported she was able to don right sock by herself prior to OT session. Pt required assistance donning left sock.) Toilet/Commode Transfer (FIM): 5 (SBA, Pt able to use grab bars and FWW to sit/stand from toilet.) Other Treatment Pt seated in recliner at start of session with a sock on her right foot. Pt asked for assistance donning L sock secondary to hip surgery. OT educated pt on hip precautions, pt verbalized understanding. Pt performed functional mobility with FWW to bathroom to perform toilet transfer. Pt declined the need to toilet. Pt performed functional mobility with FWW back to recliner. Post OT session, pt seated upright in recliner, call light and phone in reach and all needs met. Education OT Patient Education: Correct positioning, Energy conservation, Progress toward Goal/Update tx plan, Purpose of tx/functional activities, Reviewed precautions, Transfer techniques Teaching Recipient: Patient Teaching Methods: Demonstration Response to Teaching: Verbalize Understanding OT Short Term Goals Short Term Goals Transfers (B,C,W/C) (FIM): 5 1=Demonstrate adherence to instructed precautions during ADL tasks. 2=Patient will verbalize/demonstrate understanding of assistive devices/modifications for ADL. 3=Patient will improve strength/tolerance for activity to enable patient to perform ADL's. OT Senior Care Goals Dental Sales Representative Goals Time Frame: Aug 05, 2019 Grooming(FIM): 6 Bathing(FIM): 5 Upper Body Dressing(FIM): 6 Lower Body Dressing(FIM): 5 Toileting(FIM): 6 Toilet/Commode Transfer(FIM): 6 Additional Goals: 1-Demonstrate ADL Tasks, 2-Verbalize Understanding, 3- ImproveStrength/Layla 1=Demonstrate adherence to instructed precautions during ADL tasks. 2=Patient will verbalize/demonstrate understanding of assistive devices/modifications for ADL. 3=Patient will improve strength/tolerance for activity to enable patient to perform ADL's. OT Education/Plan Problem List/Assessment Assessment: Decreased Activ Tolerance, Impaired Funct Balance, Impaired Self- Care Skills Pt to benefit from skilled OT intervention for ADL training, transfers, adaptive equipment training, and home safety education to increase level of independence and allow safe discharge home. Discharge Recommendations Plan/Recommendations: Continue POC Therapy Discharge Recommendati: Post Acute OT Equpiment Recommendations-D/C: Hip Kit Treatment Plan/Plan of Care Treatment,Training & Education: Yes Patient would benefit from OT for education, treatment and training to promote independence in ADL's, mobility, safety and/or upper extremity function for ADL's. Plan of Care: ADL Retraining, Functional Mobility, UE Funct Exercise/Act Treatment Duration: Aug 05, 2019 Frequency: 5 times per week Estimated Hrs Per Day: .25 hour per day Rehab Potential: Good Time/GCodes Start Time: 13:58 Stop Time: 14:10 Total Time Billed (hr/min): 12 Billed Treatment Time 1, ADL [id number] VERONICA SUN OT Jul 24, 2019 14:21
--- NOTE | 2019-07-24 14:48 | Physical Therapy Daily Note ---
PT Daily Note-Current Subjective Patient just complete with OT. Agrees to PT. Pain Numeric Pain Scale: 5-Moderate Pain Location: Left Location Body Site: Hip Pain Description: Acute Mental Status Patient Orientation: Normal For Age Transfers Therapy Code Descriptions/Definitions Functional [place] Measure: 0=Not Assessed/NA 4=Minimal Assistance 1=Total Assistance 5=Supervision or Setup 2=Maximal Assistance 6=Modified [place] 3=Moderate Assistance 7=Complete [place] Therapy Quality Codes: 6 Independent with activity with or without an assistive device 5 Patient requires set up or clean up by helper. Patient completes activity by themselves 4 Supervision or touching assist (CGA). [place] provide cues , steadying assist 3 The helper provides less than half the effort to complete the activity 2 The helper provides more than half the effort to complete the activity 1 Dependent. The helper does all the effort to complete an activity 7 Patient refused to complete or attempt activity 9 The patient did not perform the activity before the current illness or injury 88 Not attempted due to Medical conditions or safety concerns Transfers (B, C, W/C) (FIM): 6 Scootin Rollin Supine to/from Sit: 6 Sit to/from Stand: 6 Bed to/from Chair: 6 Weight Bearing Right Lower Extremity: Right Full Weight Bearing Left Lower Extremity: Left Weight Bearing/Tolerated Gait Training Gait (FIM): 6 Distance (FIM): 3=150 ft Distance: 200' Gait Level of Assist: 6 Gait Assistive Device: FWW steady, antalgic Exercises Supine Ex: Ankle pumps, Quad Set, Heel Slides Supine Reps: 15 Assessment Patient tolerated treatment well and remained in bed with needs met. Education on THR protocol reviewed. PT Short Term Goals Short Term Goals Time Frame: Jul 26, 2019 Transfers (B,C,W/C) (FIM): 5 Gait (FIM): 5 Distance (FIM): 3=150 ft Gait Level of Assist: 5 Gait Assistive Device: FWW # of Steps: 3 Stairs Level of Assist: 5 PT Routing Clerk Goals Chcf Goals PT Chcf Goals Time Frame: Jul 28, 2019 Transfers (B,C,W/C) (FIM): 6 Gait (FIM): 6 Gait Assistive Device: FWW # of Steps: 3 Stairs Level Of Assist: 5 PT Plan Treatment/Plan Treatment Plan: Continue Plan of Care Treatment Plan: Bed Mobility, Functional Activity Layla, Functional Strength, Gait, Safety, Therapeutic Exercise, Transfers Frequency: 11 times per week Estimated Hrs Per Day: .25 hour per day Patient and/or Family Agrees t: Yes Time/GCodes Time In: 0 Time Out: 1433 Total Billed Treatment Time: 23 Total Billed Treatment 1 visit EX 14 min GT 9 min KELLIE RIVERS PT Jul 24, 2019 14:48
--- NOTE | 2019-07-24 15:48 | Progress Note ---
Subjective Subjective/Events-last exam Patient doing well today. Up with walker. Tolerating PO diet. Pain well controlled on PO meds. Has 2 stairs to get into home. Review of Systems Pulmonary: No Dyspnea, No Cough Cardiovascular: No: Chest Pain, Palpitations Gastrointestinal: No: Abdominal Pain, Diarrhea, Constipation Neurological: Weakness Objective Exam Last Set of Vital Signs Vital Signs Date Time Temp Pulse Resp B/P (MAP) Pulse Ox O2 Delivery O2 Flow Rate FiO2 07/24/19 08:00 Room Air 07/24/19 08:00 36.8 81 18 111/53 96 Capillary Refill : Less Than 3 SecondsLess Than 3 Seconds I&O Intake and Output 07/24/19 00:00 Intake Total 3350 ml Output Total 1000 ml Balance 2350 ml Intake Oral 1350 ml IV Total 2000 ml Output Urine Total 1000 ml # Voids 4 # Bowel Movements 1 General: Alert, Oriented X3, Cooperative, No Acute Distress HEENT: Mucous Memb Moist/[place] Lungs: Clear to Auscultation, Normal Air Movement Heart: Regular Rate, No Murmurs Abdomen: Normal Bowel Sounds, Soft, No Tenderness, No Masses Extremities: No Edema, No Tenderness/Swelling Neuro: Sensation Intact, Cranial Nerves 3-12 NL Results/Procedures Lab Laboratory Tests 07/23/19 16:15: Glucometer 201H 07/23/19 20:09: Glucometer 257H 07/24/19 05:00: Hemoglobin 8.9L, Hematocrit 27L 07/24/19 05:18: Glucometer 125H 07/24/19 10:51: Glucometer 336H Microbiology 07/20/19 MRSA Screen - Final, Complete MRSA not isolated Radiology Assessment/Plan Assessment/Plan Assessment & Plan (1) Fracture of hip, left, closed Status: Acute Assessment & Plan: Repair per Ortho. 07/24: Will have PT work with patient on stairs as patient has 2 stairs to get into home, will order HH with PT at discharge Qualifiers: Qualified Codes: S72.002A - Fracture of unspecified part of neck of left femur, initial encounter for closed fracture (2) Anemia due to acute blood loss Status: Acute Assessment & Plan: 07/24: 2/2 to blood loss associated with surgery, will start iron BID x 4 weeks (3) Hypertension Status: Chronic Assessment & Plan: Resume home meds. Qualifiers: Qualified Codes: I10 - Essential (primary) hypertension (4) Hyperlipemia Status: Chronic Assessment & Plan: Resume home statin. (5) Diabetes Status: Chronic Assessment & Plan: Resume home metformin, diabetic diet. Sliding scale insulin, may need insulin on d/c. 07/24: DM ed ordered today Qualifiers: Qualified Codes: E11.65 - Type 2 diabetes mellitus with hyperglycemia (6) Leukopenia Status: Acute Assessment & Plan: Hold home olanzepine, monitor. (7) Acute renal insufficiency Status: Acute Assessment & Plan: Unknown baseline, stable today. Hydration and monitoring. (8) Hyponatremia Status: Acute (9) Elevated AST (SGOT) Status: Acute Assessment & Plan: Minimally elevated, Unclear etiology, monitor. (10) DVT prophylaxis Status: Acute Assessment & Plan: Enoxaparin Clinical Quality Measures DVT/VTE Risk/Contraindication: Risk Factor Score Per Nursin RFS Level Per Nursing on Admit: 4+=Very High ABHIJIT GIBSON MD Jul 24, 2019 15:48
[2019-07-24 16:00] VITALS: BP 107/57
[2019-07-24] MEDS: LACTOBACILLUS ACIDOPHILUS (PROBIOTIC) CAPSULE PO SCH (19:32)
[2019-07-24] MEDS: ASPIRIN E.C. 81 MG (ECOTRIN) TAB PO SCH (19:32)
[2019-07-24] MEDS: FERROUS SULF 325 MG (IRON) TAB PO SCH (19:35)
[2019-07-24] MEDS: FOLIC ACID 1 MG TAB PO SCH (20:41)
[2019-07-24] MEDS: ROSUVASTATIN 20 MG (CRESTOR) TABLET PO SCH (20:41)
[2019-07-24] MEDS: ENOXAPARIN 30 MG/0.3 ML (LOVENOX) SYR SC SCH (20:42)
[2019-07-25] VITALS: BP 118/52
[2019-07-25] MEDS: ZOLPIDEM 5 MG (AMBIEN) TAB PO PRN (02:39)
[2019-07-25] MEDS: HYDROcodone/APAP 10 MG/325 MG (LORTAB) TAB PO PRN ×2 (02:39→09:06)
[2019-07-25 05:12] LABS: BASOPHILS % (AUTO) 0 % (0-10); EOSINOPHILS % (AUTO) 1 % (0-10); HEMATOCRIT 24 % (35-52); LYMPHOCYTES # (AUTO) 1.2 X 10^3 (1.0-4.0); LYMPHOCYTES % (AUTO) 33 % (12-44); MEAN CORPUSCULAR HEMOGLOBIN 30 PG (25-34); MEAN CORPUSCULAR HGB CONC 33 G/DL (32-36); MEAN CORPUSCULAR VOLUME 91 FL (80-99); MONOCYTES # (AUTO) 0.4 X 10^3 (0.0-1.0); MONOCYTES % (AUTO) 11 % (0-12); NEUTROPHILS % (AUTO) 55 % (42-75); PLATELET COUNT 178 10^3/uL (130-400); RED CELL DISTRIBUTION WIDTH 13.8 % (10.0-14.5); WHITE BLOOD COUNT 3.6 10^3/uL (4.3-11.0)
[2019-07-25 05:20] LABS: CALCIUM 8.4 MG/DL (8.5-10.1); CREATININE SERUM 1.61 MG/DL (0.60-1.30); POTASSIUM 3.7 MMOL/L (3.6-5.0)
[2019-07-25] MEDS: inSUlin ASPART (NovoLOG) 1 UNIT/0.01 ML (CHARGE PER UNIT) SC SCH ×2 (05:21→11:49)
[2019-07-25] MEDS: FERROUS SULF 325 MG (IRON) TAB PO SCH (05:55)
[2019-07-25 08:00] VITALS: BP 109/64
[2019-07-25] MEDS: SENNA W/DOCUSATE (SENOKOT S) TABLET PO SCH (09:06)
--- NOTE | 2019-07-25 11:24 | Physical Therapy Daily Note ---
PT Daily Note-Current Subjective Patient agrees to PT. Pain Numeric Pain Scale: 4 Location: Left Location Body Site: Hip Pain Description: Acute Mental Status Patient Orientation: Normal For Age Transfers Therapy Code Descriptions/Definitions Functional [place] Measure: 0=Not Assessed/NA 4=Minimal Assistance 1=Total Assistance 5=Supervision or Setup 2=Maximal Assistance 6=Modified [place] 3=Moderate Assistance 7=Complete [place] Therapy Quality Codes: 6 Independent with activity with or without an assistive device 5 Patient requires set up or clean up by helper. Patient completes activity by themselves 4 Supervision or touching assist (CGA). [place] provide cues , steadying assist 3 The helper provides less than half the effort to complete the activity 2 The helper provides more than half the effort to complete the activity 1 Dependent. The helper does all the effort to complete an activity 7 Patient refused to complete or attempt activity 9 The patient did not perform the activity before the current illness or injury 88 Not attempted due to Medical conditions or safety concerns Transfers (B, C, W/C) (FIM): 6 Scootin Rollin Supine to/from Sit: 6 Sit to/from Stand: 6 Bed to/from Chair: 6 Weight Bearing Right Lower Extremity: Right Full Weight Bearing Left Lower Extremity: Left Weight Bearing/Tolerated Gait Training Gait (FIM): 6 Distance (FIM): 3=150 ft Distance: 250' x 2 Gait Level of Assist: 6 Gait Assistive Device: FWW reciprocal pattern Stair Training Stair Training: Handrails/: 2 handrails, uses walker Stairs (FIM): 2 #of Steps: 4 Stairs: Pattern: Step to Level of Assist: 5 Assessment Patient to dismiss to home with spouse and home health on this date. Patient has attained all functional goals. PT Short Term Goals Short Term Goals Time Frame: Jul 26, 2019 Transfers (B,C,W/C) (FIM): 5 Gait (FIM): 5 Distance (FIM): 3=150 ft Gait Level of Assist: 5 Gait Assistive Device: FWW # of Steps: 3 Stairs Level of Assist: 5 PT Asbestos Pipe Supervisor Goals Asbestos Pipe Supervisor Goals PT Chcf Goals Time Frame: Jul 28, 2019 Transfers (B,C,W/C) (FIM): 6 Gait (FIM): 6 Gait Assistive Device: FWW # of Steps: 3 Stairs Level Of Assist: 5 PT Plan Treatment/Plan Treatment Plan: Discontinue PT, goals met Treatment Plan: Bed Mobility, Functional Activity Layla, Functional Strength, Gait, Safety, Therapeutic Exercise, Transfers Frequency: 11 times per week Estimated Hrs Per Day: .25 hour per day Patient and/or Family Agrees t: Yes Time/GCodes Time In: 1031 Time Out: 1040 Total Billed Treatment Time: 9 Total Billed Treatment 1 visit FA 9 min KELLIE RIVERS PT Jul 25, 2019 11:24
[2019-07-25] MEDS ORDERED: SENN-20 PO (12:17)
[2019-07-25] MEDS ORDERED: FERR325T18 PO (12:17)
[2019-07-25] MEDS ORDERED: HYDR-3820 PO (12:17)
--- NOTE | 2019-07-25 12:23 | D/C HH Face to Face Order ---
Discharge Summary Reconcile Patient Problems Problems Reviewed?: Yes Instructions for Patient Via [employer], Assessment/Instructions Left Hip fracture s/p Repair Physical Debility NIDDM Anemia of Acute blood loss Physician to follow Patient: Barbara Lyon Diet for Home: ADA Diet Hospital Course Date of Admission: Jul 20, 2019 at 14:34 Admission Diagnosis : - Left Hip Fracture s/p Repair - Physical Debility - Anemia of Acute blood loss - NIDDM Family Physician/Provider: Yvonne Holden Aprn Date of Discharge: 07/25/19 Discharge Diagnosis: See Above Labs and Pending Lab Test: Laboratory Tests 07/24/19 17:21: Glucometer 162H 07/24/19 21:20: Glucometer 264H 07/25/19 04:39: White Blood Count 3.6L, Red Blood Count 2.68L, Hemoglobin 8.0L, Hematocrit 24L, Mean Corpuscular Volume 91, Mean Corpuscular Hemoglobin 30, Mean Corpuscular Hemoglobin Concent 33, Red Cell Distribution Width 13.8, Platelet Count 178, Mean Platelet Volume 9.0, Neutrophils (%) (Auto) 55, Lymphocytes (%) (Auto) 33, Monocytes (%) (Auto) 11, Eosinophils (%) (Auto) 1, Basophils (%) (Auto) 0, Neutrophils # (Auto) 2.0, Lymphocytes # (Auto) 1.2, Monocytes # (Auto) 0.4, Eosinophils # (Auto) 0.0, Basophils # (Auto) 0.0, Sodium Level 141, Potassium Level 3.7, Chloride Level 112H, Carbon Dioxide Level 20L, Anion Gap 9, Blood Urea Nitrogen 14, Creatinine 1.61H, Estimat Glomerular Filtration Rate 31, BUN/Creatinine Ratio 9, Glucose Level 143H, Calcium Level 8.4L 07/25/19 11:26: Glucometer 369H Microbiology 07/20/19 MRSA Screen - Final, Complete MRSA not isolated Home Meds Active Reported Vitamin T30-Ylyjq Acid Tablet (Cyanocobalamin/Folic Acid) 1 Each Tablet 1 Tab PO HS Trulicity (Dulaglutide) 1.5 Mg/0.5 Ml Pen.injctr 1.5 Mg SQ FR Symbyax 6-25 mg Capsule (Olanzapine/Fluoxetine HCl) 1 Ea Cap 1 Cap PO HS Metformin HCl 500 Mg Tablet 1,000 Mg PO DAILY TAKES 2 (500MG) TABLETS Crestor (Rosuvastatin Calcium) 20 Mg Tablet 20 Mg PO HS Lisinopril 2.5 Mg Tablet 2.5 Mg PO 1800 Aspirin EC (Aspirin) 81 Mg Tablet. 81 Mg PO 1800 Acidophilus (Lactobacillus Acidophilus) 1 Each Capsule 1 Cap PO 1800 [Cbd Capsule] 1 Cap PO DAILY Zolpidem Tartrate 10 Mg Tablet 10 Mg PO HS Consulations Kareem: Ortho Surgery Patient Allergies: Coded Allergies: No Known Drug Allergies (Unverified , 07/20/19) Height (Feet): 5 Height (Inches): 3.00 Weight (Pounds): 160 Weight (Ounces): 0.0 Home Health Need/Face to Face Date of Face to Face: Jul 25, 2019 Clinical Findings: Generalized weakness and fatigue, Instability, Muscle weakness, Shortness of breath, Unsteady gait I have seen Pt [id number]: Yes Discharged To: Home Diagnosis/Conditions: Left hip fracture Anemia of acute blood loss Patient is Homebound due to: Ha fall risk due to instabilty, Muscle weakness Homebound Status Due to the above stated illness, injury or surgical procedure (medical condition or diagnosis) and associated clinical findings, the patient is homebo und because of his/her inability to leave home except with aid of a supportive device and/or person AND leaving the home requires a considerable and taxing effort or is medically contraindicated. Pt req the following assistanc: [facility] Nursing Orders Home Health Services Order: Nursing Services, Housemaid-Evaluate & Treat, Physical Therapy-Evaluate & Treat Home Health Infusion Therapy Line Start Date: Jul 20, 2019 Therapy Orders Therapy Orders: Physical Therapy, PT to assess for OT Therapy Specific Orders: Teach enviro modifications/safety, Gait training, Increase strength/endurance, Restore ROM F/u appt with Niya Jimenez on WednesdayJul 31 @ 11 AM Certify Stmt I certify that this patient is under my care and that I, a nurse practitioner or a physician; a assistant professor of communication working with me, had a face to face encounter that - meets the physician face to face encounter requirements with this patient as dated. Discharge Physical Exam General: Alert, Oriented X3, No Acute Distress Lungs: Clear to Auscultation, Normal Air Movement Heart: Regular Rate, No Murmurs Abdomen: Normal Bowel Sounds, Soft, No Tenderness, No Masses Extremities: No Edema, No Tenderness/Swelling Skin: No Rashes Neuro: Normal Speech, Sensation Intact, Cranial Nerves 3-12 NL Psych/Mental Status: Mental Status NL, Mood NL ABHIJIT GIBSON MD Jul 25, 2019 12:20
[2019-07-25 13:30] VITALS: BP 109/64
--- NOTE | 2019-07-25 15:43 | NUR ---
CM/SS, respond to consult for final discharge planning. HHC: Coordinated with patient/spouse preferred agency, [facility]. Agency confirmed receipt and that they would be able to provide services. DME: Physician completed order for [facility], Unit RN reportedly provided to patient/spouse, they were going to get this item on their way home. Both patient and spouse pleased she was able to discharge and return home today.
--- NOTE | 2019-07-26 14:50 | NUR ---
CM/SS, spouse cell phone: [phone]
== END 2019-07-25 13:33 | disposition home health service (06) | DRG 470 ==
LOC: EDUNIT# 13:14 → ER FS 13:15 → 4TH 14:34
PROVIDERS: ADMIT Family Medicine; ATTEND Family Medicine
PROC: 0SRS019 Replacement of Left Hip Joint, Femoral Surface with Metal Synthetic Substitute, Cemented, Open Approach (ICD-10-PCS; principal; 2019-07-21 10:21)
DX: S72.012A Unspecified intracapsular fracture of left femur, initial encounter for closed fracture (principal); D62 Acute posthemorrhagic anemia; E87.1 Hypo-osmolality and hyponatremia; S00.03XA Contusion of scalp, initial encounter; S40.012A Contusion of left shoulder, initial encounter; S40.022A Contusion of left upper arm, initial encounter; E11.65 Type 2 diabetes mellitus with hyperglycemia; I10 Essential (primary) hypertension; E78.00 Pure hypercholesterolemia, unspecified; K59.03 Drug induced constipation; E78.5 Hyperlipidemia, unspecified; D72.819 Decreased white blood cell count, unspecified; N28.9 Disorder of kidney and ureter, unspecified; R74.0 Nonspecific elevation of levels of transaminase and lactic acid dehydrogenase [LDH]; T50.7X5A Adverse effect of analeptics and opioid receptor antagonists, initial encounter; W19.XXXA Unspecified fall, initial encounter; Y92.000 Kitchen of unspecified non-institutional (private) residence as the place of occurrence of the external cause; Z79.84 Long term (current) use of oral hypoglycemic drugs
CPT/HCPCS: 36415; 51702; 70450; 71045; 72125; 73060; 73501; 73502; 80048; 80053; 81000; 82962; 85014; 85018; 85025; 85027; 85610; 85730; 87081; 93005; 94664; 96372; 96374; 96375

== ENCOUNTER → 2019-07-20 | Outpatient (CLI) | payer MEDICARE, OTHER ==
[~2019-07-20] MED LIST: ASPI-983 PO; CBD CAPSULE PO; CYAN1TAB26 PO; DULA1.5P2 SQ; FERR325T18 PO; HYDR-3820 PO; LACT1CAP8 PO; LISI2.5T PO; METF-397 PO; NF-SYM625 PO; ROSU20TA2 PO; SENN-20 PO; ZOLP10TA5 PO
--- NOTE | 2019-07-20 12:36 | Diagnostic Imaging Report ---
CLINICAL INDICATION: Patient is status post fall two days ago. Patient has left hip pain. EXAM: X-ray of the left hip, AP and frog-leg views. COMPARISON: None. FINDINGS: There is an impacted and displaced fracture of the proximal left femoral neck/subcapital region. There is no other fracture or dislocation seen. Remainder of the pelvis is unremarkable. Visualized left sacroiliac joints are unremarkable. Phleboliths are seen in the pelvis. IMPRESSION: There is a mildly impacted fracture of the left proximal femoral neck/subcapital region. Results of this report were discussed with Jemma Luo APRN via the telephone on 07/20/2019 at 1225 hrs. CRITICAL FINDINGS. Dictated by: Dictated on workstation # [id number]
== END ==
LOC: RAD FS 11:42
PROVIDERS: ATTEND Nurse Practitioner
DX: S72.092A Other fracture of head and neck of left femur, initial encounter for closed fracture (principal)
CPT/HCPCS: 73502

== ENCOUNTER → 2019-08-04 | Outpatient (CLI) | payer MEDICARE, OTHER ==
--- NOTE | 2019-08-04 10:49 | Diagnostic Imaging Report ---
INDICATION: Left hip replacement. TIME OF EXAM: 10:24 AM FINDINGS: Postsurgical changes left hip arthroplasty are noted. Overlying skin rc are seen. Prosthetic elements appear to be in good position. No fracture or loosening is seen. IMPRESSION: Postop left hip. Dictated by: Dictated on workstation # [id number]
== END ==
LOC: ORTHO 09:46
PROVIDERS: ATTEND Orthopaedic Surgery
DX: S72.012A Unspecified intracapsular fracture of left femur, initial encounter for closed fracture (principal); W19.XXXA Unspecified fall, initial encounter; Y92.000 Kitchen of unspecified non-institutional (private) residence as the place of occurrence of the external cause
CPT/HCPCS: 73501

== ENCOUNTER → 2019-08-18 | Outpatient (CLI) | payer MEDICARE, OTHER | LOC: ORTHO 09:12 | PROVIDERS: ATTEND Orthopaedic Surgery | DX: S72.012A Unspecified intracapsular fracture of left femur, initial encounter for closed fracture (principal); W19.XXXA Unspecified fall, initial encounter; Y92.000 Kitchen of unspecified non-institutional (private) residence as the place of occurrence of the external cause ==

== ENCOUNTER → 2019-09-08 | Outpatient (CLI) | payer MEDICARE, OTHER | LOC: ORTHO 09:45 | PROVIDERS: ATTEND Orthopaedic Surgery | DX: S72.012A Unspecified intracapsular fracture of left femur, initial encounter for closed fracture (principal); W19.XXXA Unspecified fall, initial encounter; Y92.000 Kitchen of unspecified non-institutional (private) residence as the place of occurrence of the external cause ==

== ENCOUNTER 2019-12-31 13:54 | Emergency (ER) | payer MEDICARE, OTHER ==
[~2019-12-31] VITALS: Ht 160 cm; Wt 72.0 kg
--- NOTE | 2019-12-31 14:00 | ED General ---
General Stated Complaint: STOMACH PAIN Source of Information: Patient, Family History of Present Illness Date Seen by Provider: Dec 31, 2019 Time Seen by Provider: 13:59 Initial Comments Patient is a 74-year-old female who comes to the emergency department today complaining of upper abdomen and epigastric pain. She has been having symptoms intermittently over the last month. Symptoms became worse today. She has had some intermittent nausea. She states the pain is worse when she eats food. She does not have excessive gas or belching. No prior history of known hernia, ulcer, gastritis, GERD. Pain is described to be sharp and severe. No alleviating factors. She has been using antacids at home without relief of symptoms. No chest pain, shortness of breath, palpitations, fever, chills, cough, or other illness. Allergies and Home Medications Allergies Coded Allergies: No Known Drug Allergies (Unverified , 07/20/19) Home Medications Aspirin 81 Mg Tablet.dr, 81 MG PO 1800, (Reported) Cyanocobalamin/Folic Acid 1 Each Tablet, 1 TAB PO HS, (Reported) Dulaglutide 1.5 Mg/0.5 Ml Pen.injctr, 1.5 MG SQ Fr, (Reported) Esomeprazole Magnesium 40 Mg Cap, 40 MG PO BID Prescribed by: FATOUMATA MORA on 12/31/19 1621 Ferrous Sulfate 325 Mg Tablet, 325 MG PO BID WITH MEALS Prescribed by: ABHIJIT GIBSON on 07/25/19 121 Hydrocodone/Acetaminophen 1 Each Tablet, 1 EA PO Q6H PRN for PAIN-MODERATE Post Op Hip fracture Prescribed by: ABHIJIT GIBSON on 07/25/19 121 Lactobacillus Acidophilus 1 Each Capsule, 1 CAP PO 1800, (Reported) Lisinopril 2.5 Mg Tablet, 2.5 MG PO 1800, (Reported) Metformin HCl 500 Mg Tablet, 1,000 MG PO DAILY, (Reported) TAKES 2 (500MG) TABLETS Olanzapine/Fluoxetine HCl 1 Ea Cap, 1 CAP PO HS, (Reported) Rosuvastatin Calcium 20 Mg Tablet, 20 MG PO HS, (Reported) Sennosides/Docusate Sodium 1 Each Tablet, 1 EA PO BID Take while taking pain medication Prescribed by: ABHIJIT GIBSON on 07/25/191216 Sucralfate 1 Gm Tablet, 1 GM PO QID Prescribed by: FATOUMATA MORA on 12/31/19 1621 Zolpidem Tartrate 10 Mg Tablet, 10 MG PO HS, (Reported) Patient Home Medication List Home Medication List Reviewed: Yes Review of Systems Review of Systems Constitutional: no symptoms reported EENTM: no symptoms reported Respiratory: no symptoms reported Cardiovascular: no symptoms reported Gastrointestinal: see HPI Genitourinary: no symptoms reported Skin: no symptoms reported All Other Systems Reviewed Negative Unless Noted: Yes Past Ztlbhed-Dpsfwd-Vlxfns Hx Patient Social History 2nd Hand Smoke Exposure: No Recent Hopitalizations: No Seasonal Allergies Seasonal Allergies: Yes Past Medical History Surgeries: Yes (L cataract removed) Eye Surgery, Gallbladder, Hysterectomy Respiratory: Yes (Bronchospasm) Asthma, Chronic Bronchitis High Cholesterol, Hypertension Neurological: No PREPARER History: Hysterectomy Genitourinary: No Gastrointestinal: Yes (Stomatitis) Gastroesophageal Reflux, Hemorrhoids Musculoskeletal: Yes (Leg Cramps, Carpal Tunnel) Endocrine: Yes Diabetes, Non-Insulin dep HEENT: Yes (Sinusitis) Cataract Loss of Vision: Denies Cancer: No Psychosocial: Yes (Insomnia) Depression Integumentary: No Blood Disorders: Yes (Anemia) Family Medical History Diabetes mellitus 19 MOTHER FH: heart disease 19 MOTHER G8 BROTHER G8 BROTHER Myocardial infarction 19 FATHER G8 BROTHER G8 BROTHER Neoplasm Heart Disease, Cancer, Diabetes Physical Exam Vital Signs Vital Signs - First Documented 12/31/19 13:55 Temp 35.9 Pulse 86 Resp 16 B/P (MAP) 151/118 (129) Pulse Ox 100 O2 Delivery Room Air Capillary Refill : Height, Weight, BMI Height: 5'3.00" Weight: 160lbs. 0.0oz. 72.092878hi; BMI Method:Stated General Appearance: No Apparent Distress, WD/WN HEENT: PERRL/EOMI Neck: Full Range of Motion Respiratory: Chest Non Tender, Lungs Clear, Normal Breath Sounds Cardiovascular: Regular Rate, Rhythm, No Edema, No Murmur Gastrointestinal: Normal Bowel Sounds, Soft, Other (subjectively tender over the epigastrium but no guarding or rebound.) Rectal: Normal Exam Extremity: Normal Capillary Refill Neurologic/Psychiatric: Alert, Oriented x3 Progress/Results/Core Measures Suspected Sepsis SIRS Temperature: Pulse: Respiratory Rate: Laboratory Tests 12/31/19 14:10: White Blood Count 3.6L Blood Pressure / Mean: Laboratory Tests 12/31/19 14:10: Creatinine 1.16, Platelet Count 133, Total Bilirubin 0.4 Results/Orders Lab Results Laboratory Tests Test 12/31/19 14:00 12/31/19 14:10 Range/Units Urine Color YELLOW Urine Clarity CLEAR Urine pH 5.5 5-9 Urine Specific [place] 1.020 1.016-1.022 Urine Protein NEGATIVE NEGATIVE Urine Glucose (UA) NEGATIVE NEGATIVE Urine Ketones NEGATIVE NEGATIVE Urine Nitrite NEGATIVE NEGATIVE Urine Bilirubin NEGATIVE NEGATIVE Urine Urobilinogen 0.2 < = 1.0 MG/DL Urine Leukocyte Esterase 1+ H NEGATIVE Urine RBC (Auto) NEGATIVE NEGATIVE Urine RBC NONE /HPF Urine WBC 10-25 H /HPF Urine Squamous Epithelial Cells 0-2 /HPF Urine Crystals NONE /LPF Urine Bacteria TRACE /HPF Urine Casts NONE /LPF Urine Mucus NONE /LPF Urine Culture Indicated YES White Blood Count 3.6 L 4.3-11.0 10^3/uL Red Blood Count 3.66 L 4.35-5.85 10^6/uL Hemoglobin 11.2 L 11.5-16.0 G/DL Hematocrit 33 L 35-52 % Mean Corpuscular Volume 91 80-99 FL Mean Corpuscular Hemoglobin 31 25-34 PG Mean Corpuscular Hemoglobin Concent 34 32-36 G/DL Red Cell Distribution Width 13.6 10.0-14.5 % Platelet Count 133 130-400 10^3/uL Mean Platelet Volume 8.5 7.4-10.4 FL Neutrophils (%) (Auto) 57 42-75 % Lymphocytes (%) (Auto) 36 12-44 % Monocytes (%) (Auto) 7 0-12 % Eosinophils (%) (Auto) 0 0-10 % Basophils (%) (Auto) 0 0-10 % Neutrophils # (Auto) 2.1 1.8-7.8 X 10^3 Lymphocytes # (Auto) 1.3 1.0-4.0 X 10^3 Monocytes # (Auto) 0.3 0.0-1.0 X 10^3 Eosinophils # (Auto) 0.0 0.0-0.3 10^3/uL Basophils # (Auto) 0.0 0.0-0.1 10^3/uL Sodium Level 136 135-145 MMOL/L Potassium Level 4.7 3.6-5.0 MMOL/L Chloride Level 100 98-107 MMOL/L Carbon Dioxide Level 23 21-32 MMOL/L Anion Gap 13 5-14 MMOL/L Blood Urea Nitrogen 23 H 7-18 MG/DL Creatinine 1.16 0.60-1.30 MG/DL Estimat Glomerular Filtration Rate 46 BUN/Creatinine Ratio 20 Glucose Level 146 H 70-105 MG/DL Calcium Level 9.7 8.5-10.1 MG/DL Corrected Calcium 8.5-10.1 MG/DL Total Bilirubin 0.4 0.1-1.0 MG/DL Aspartate Amino Transf (AST/SGOT) 50 H 5-34 U/L Alanine Aminotransferase (ALT/SGPT) 59 H 0-55 U/L Alkaline Phosphatase 321 H 40-136 U/L Troponin I < 0.30 <0.30 NG/ML Total Protein 7.0 6.4-8.2 GM/DL Albumin 4.6 H 3.2-4.5 GM/DL Lipase 110 H 8-78 U/L My Orders Orders - FATOUMATA MORA DO Ns Iv 1000 Ml (Sodium Chloride 0.9%) (12/31/19 14:15) Ondansetron Injection (Zofran Injectio (12/31/19 14:15) Famotidine Injection (Pepcid Injection) (12/31/19 14:15) Antacid Suspension (Mylanta Suspension (12/31/19 14:15) Lidocaine 2% Viscous 15 Ml (Xylocaine Vi (12/31/19 14:15) Ct Abdomen/Pelvis W (12/31/19 14:06) Ed Iv/Invasive Line Start (12/31/19 14:06) Cbc With Automated Diff (12/31/19 14:06) Comprehensive Metabolic Panel (12/31/19 14:06) Lipase (12/31/19 14:06) Urinalysis (12/31/19 14:06) Troponin I Fs (12/31/19 14:06) Ekg Tracing (12/31/19 14:06) Urine Culture (12/31/19 14:00) Iohexol Injection (Omnipaque 350 Mg/Ml 1 (12/31/19 15:30) Received Contrast (Hold Metformin- Contr (12/31/19 15:30) Sodium Chloride Flush (Catheter Flush Sy (12/31/19 15:30) Ns (Ivpb) (Sodium Chloride 0.9% Ivpb Bag (12/31/19 15:30) Medications Given in ED Current Medications Medications Dose Ordered Sig/Taty Route Start Time Stop Time Status Last Admin Dose Admin Al Hydrox/Mg Hydrox/Simethicone 15 ml ONCE ONCE PO 12/31/19 14:15 12/31/19 14:16 DC 12/31/19 14:23 15 ML Famotidine 20 mg ONCE ONCE IVP 12/31/19 14:15 12/31/19 14:16 DC 12/31/19 14:23 20 MG Iohexol 80 ml ONCE ONCE IV 12/31/19 15:30 12/31/19 15:31 DC 12/31/19 15:42 80 ML Lidocaine HCl 15 ml ONCE ONCE PO 12/31/19 14:15 12/31/19 14:16 DC 12/31/19 14:23 15 ML Ondansetron HCl 4 mg Q4H PRN IVP 12/31/19 14:15 12/31/19 14:23 4 MG Sodium Chloride 10 ml NEEDED PRN IV 12/31/19 15:30 12/31/19 15:42 10 ML Sodium Chloride 100 ml ONCE ONCE IV 12/31/19 15:30 12/31/19 15:31 DC 12/31/19 15:42 100 ML Vital Signs/I&O 12/31/19 13:55 Temp 35.9 Pulse 86 Resp 16 B/P (MAP) 151/118 (129) Pulse Ox 100 O2 Delivery Room Air Capillary Refill : Progress Note : Time: 14:10 Progress Note Patient is seen and examined. Initial impression abdominal exam documented above. No peritoneal signs. Given that her pain is worsening however we will do CT scan today. Orders placed for Zofran, Pepcid, GI cocktail. We will also check troponin and EKG along with basic labs. Normal saline 1 L. 16:25: All results are reviewed. Patient has CT scan that shows some diffuse hepatomegaly and diverticulosis but no acute cause for pain and no perforation. Labs are also not remarkable for acute findings to explain her pain symptoms. Urinalysis was notable for pyuria although she does not have any symptoms of UTI. In the ER, she was given GI cocktail and Pepcid and her symptoms were greatly improved. She received some IV fluids. She was emulating about the depar tment without difficulty and in no distress. Patient is discharged to home. Suspect some acid related diagnosis, gastritis, ulcer, duodenitis, GERD. Patient is placed on twice a day dosing with Nexium. She is given Carafate. I recommended that she follow up with GI physician at her earliest convenience for further evaluation of ongoing symptoms. Return to the ER for any severe symp toms. Patient was agreeable to this plan of care and all of her questions were answered prior to discharge home. She is placed on Macrobid empirically for treatment of her pyuria. ECG Initial ECG Impression Date: Dec 31, 2019 Initial ECG Impression Time: 14:15 Initial ECG Rate: 73 Initial ECG Rhythm: Normal Sinus Departure Impression Primary Impression: Gastritis Disposition: 01 HOME, SELF-CARE Condition: Improved Departure-Patient Inst. Referrals: [facility]/ (PCP) Primary Care Physician VARINDER AN APRN (Family) Primary Care Physician Scripts Sucralfate (Carafate) 1 Gm Tablet 1 GM PO QID for Abdominal Pain, #120 TAB Prov: FATOUMATA MORA DO 12/31/19 Esomeprazole Magnesium (Nexium) 40 Mg Cap 40 MG PO BID for 30 Days, #60 CAP Prov: FATOUMATA MORA DO 12/31/19 FATOUMATA MORA DO Dec 31, 2019 14:00
[2019-12-31] MEDS ORDERED: NS IV 1000 ML 1,000 ML IV SCH (14:15)
[2019-12-31] MEDS ORDERED: LIDOCAINE 2% VISCOUS 15 ML UDC PO ONE ×2 (14:15→16:30)
[2019-12-31] MEDS ORDERED: ANTACID SUSP 30 ML UDC (MYLANTA) PO ONE ×2 (14:15→16:30)
[2019-12-31] MEDS ORDERED: ONDANSETRON 4 MG/2 ML (SDV) Z0FRAN IVP PRN (14:15)
[2019-12-31] MEDS ORDERED: FAMOTIDINE 20MG/2ML IV (PEPCID) IVP ONE (14:15)
[2019-12-31 14:18] LABS: HEMATOCRIT 33 % (35-52); HEMOGLOBIN 11.2 G/DL (11.5-16.0); MEAN CORPUSCULAR HEMOGLOBIN 31 PG (25-34); MEAN CORPUSCULAR HGB CONC 34 G/DL (32-36); MEAN CORPUSCULAR VOLUME 91 FL (80-99); MEAN PLATELET VOLUME 8.5 FL (7.4-10.4); PLATELET COUNT 133 10^3/uL (130-400); RED CELL DISTRIBUTION WIDTH 13.6 % (10.0-14.5); WHITE BLOOD COUNT 3.6 10^3/uL (4.3-11.0)
[2019-12-31 14:19] LABS: BASOPHILS % (AUTO) 0 % (0-10); EOSINOPHILS % (AUTO) 0 % (0-10); LYMPHOCYTES # (AUTO) 1.3 X 10^3 (1.0-4.0); LYMPHOCYTES % (AUTO) 36 % (12-44); MONOCYTES # (AUTO) 0.3 X 10^3 (0.0-1.0); MONOCYTES % (AUTO) 7 % (0-12); NEUTROPHILS # (AUTO) 2.1 X 10^3 (1.8-7.8); NEUTROPHILS % (AUTO) 57 % (42-75)
[2019-12-31 14:26] LABS: CLARITY,URINE CLEAR; COLOR,URINE YELLOW; PH,URINE 5.5 (5-9)
[2019-12-31 14:27] LABS: BACTERIA,URINE TRACE /HPF; BILIRUBIN,URINE NEGATIVE (NEGATIVE); GLUCOSE, URINE (UA) NEGATIVE (NEGATIVE); KETONES,URINE NEGATIVE (NEGATIVE); LEUKOCYTE ESTERASE ,URINE 1+ (NEGATIVE); NITRITE,URINE NEGATIVE (NEGATIVE); PROTEIN,URINE NEGATIVE (NEGATIVE); SQUAMOUS EPITHELIAL CELL,UR 0-2 /HPF
[2019-12-31 14:39] LABS: ALKALINE PHOSPHATASE 321 U/L (40-136); BILIRUBIN,TOTAL 0.4 MG/DL (0.1-1.0); BUN/CREATININE RATIO 20; CALCIUM 9.7 MG/DL (8.5-10.1); CARBON DIOXIDE 23 MMOL/L (21-32); CHLORIDE 100 MMOL/L (98-107); CREATININE SERUM 1.16 MG/DL (0.60-1.30); GFR ESTIMATED 46; GLUCOSE 146 MG/DL (70-105); POTASSIUM 4.7 MMOL/L (3.6-5.0); SODIUM 136 MMOL/L (135-145)
[2019-12-31 14:40] LABS: ALANINE AMINOTRANSFERASE 59 U/L (0-55); ALBUMIN 4.6 GM/DL (3.2-4.5)
[2019-12-31 15:00] LABS: LIPASE 110 U/L (8-78)
[2019-12-31] MEDS ORDERED: IOHEXOL 350 MG/ML 100 ML (OMNIPAQUE 350) VIAL IV ONE (15:30)
[2019-12-31] MEDS ORDERED: NS 100 ML (IVPB) BAG IV ONE (15:30)
[2019-12-31] MEDS ORDERED: HOLD METFORMIN - RECEIVED CONTRAST 20 ML VIAL IV SCH (15:30)
[2019-12-31] MEDS ORDERED: CATHETER FLUSH 10 ML SYR IV PRN (15:30)
--- NOTE | 2019-12-31 15:59 | Diagnostic Imaging Report ---
PROCEDURE: CT abdomen and pelvis with contrast. TECHNIQUE: Multiple contiguous axial images were obtained through the abdomen and pelvis after administration of intravenous contrast. Auto Exposure Controls were utilized during the CT exam to meet ALARA standards for radiation dose reduction. INDICATION: Upper abdominal pain and nausea. FINDINGS: The lung bases are clear. Liver shows fatty change. Gallbladder is absent. Bile ducts are not dilated. Pancreas is normal. There is moderate splenomegaly. Spleen measures approximately 15 x 15 x 6 cm. There is no evidence of portal hypertension. The adrenal glands are not enlarged. Kidneys appear normal as does the spleen with IV contrast. Aorta shows mild atherosclerotic disease without aneurysm or dissection. Bowel gas pattern is normal throughout. Stomach is not distended. Colon shows normal stool and gas pattern. There is rather marked diverticulosis of the sigmoid colon without evidence of acute diverticulitis. Uterus is absent. No pelvic masses are seen. Detail of the lower pelvis is limited due to arthroplasty of the left hip. No evidence of adenopathy of pathologic size. No free air or free fluid. IMPRESSION: 1. Nonspecific splenomegaly. 2. Hepatic steatosis without hepatomegaly. No evidence of abdominal varices. 3. Normal-appearing bowel gas pattern. There is diverticulosis of the sigmoid colon without evidence of acute diverticulitis. Dictated by: Dictated on workstation # [id number]
[2019-12-31] MEDS ORDERED: NF-ESOM40C PO (16:21)
[2019-12-31] MEDS ORDERED: SUCR1TAB36 PO (16:21)
[2019-12-31] MEDS ORDERED: NITR-65 PO (16:32)
[2019-12-31 17:07] VITALS: BP 133/69
== END 2019-12-31 17:07 | disposition home or self-care (01) ==
LOC: EDUNIT# 13:54 → ER FS 13:55
DX: K29.70 Gastritis, unspecified, without bleeding (principal); I10 Essential (primary) hypertension; E11.9 Type 2 diabetes mellitus without complications; E78.00 Pure hypercholesterolemia, unspecified; K21.9 Gastro-esophageal reflux disease without esophagitis; F32.9 Major depressive disorder, single episode, unspecified; D64.9 Anemia, unspecified; Z79.82 Long term (current) use of aspirin; Z79.84 Long term (current) use of oral hypoglycemic drugs; Z82.49 Family history of ischemic heart disease and other diseases of the circulatory system
CPT/HCPCS: 36415; 74177; 80053; 81000; 83690; 84484; 85025; 87088; 93005; 96374; 96375

== ENCOUNTER 2020-02-06 05:39 | Outpatient (CLI) | payer MEDICARE, OTHER ==
[~2020-02-06] VITALS: Ht 157 cm; Wt 68.0 kg
[~2020-02-06 05:39] MED LIST changes: +ACHYD1T PO; -HYDR-3820 PO; +NF-ESOM40C PO; +NITR-65 PO; +SUCR1TAB36 PO
[2020-02-06] MEDS ORDERED: INSU100V5 SQ (10:13)
[2020-02-06] MEDS ORDERED: OLAN1CAP12 PO (10:13)
[2020-02-06] MEDS ORDERED: ZOLP10TA PO (10:13)
== END 2020-02-06 10:52 | disposition home or self-care (01) ==
LOC: PREOP 05:39
PROVIDERS: ATTEND Surgery
DX: Z01.818 Encounter for other preprocedural examination (principal)